=== PATIENT | female | born 1965 | race Caucasian/White ===

== ENCOUNTER 2017-09-01 14:05 | Emergency (ER) | payer OTHER, SELFPAY ==
[2017-09-01 14:35] LABS: #Basophils 0.1 thou/uL (0.0-0.2); #Eosinphils 0.2 thou/uL (0.0-0.7); #Lymphocytes 1.7 thou/uL (1.20-3.40); #Monocytes 0.5 thou/uL (0.11-0.59); #Neutrophils 5.1 thou/uL (1.40-6.50); %Eosinophils 2.2 % (0.0-10.0); %Lymphocytes 22.4 % (21.0-51.0); %Monocytes 6.7 % (0.0-10.0); %Neutrophils 67.7 % (42.0-75.0); Mean Corpuscular HGB CONC 34.3 g/dL (32.0-36.0); Mean Corpuscular Hemoglobin 36.3 pg (27.0-31.0); Mean Platelet Volume 6.8 fL (7.4-10.4); Platelet Count 199 thou/uL (130-400); RBC Distribution Width 11.8 % (11.5-14.5); Red Blood Cell (RBC) Count 4.41 mill/uL (4.20-5.40); White Blood Cell (WBC) Count 7.5 thou/uL (4.8-10.8)
[2017-09-01] MEDS ORDERED: Iopamidol 370 76% 50 ML VIAL FS ONE (14:49)
[2017-09-01] MEDS ORDERED: ISOVUE-370 76%-LOCM 1 ML ONE (14:49)
[2017-09-01 14:51] LABS: MDiff Complete? YES; Macrocytosis SLIGHT = 6-15 cells (100X) (0-5/hpf); PLT Morphology Comment Appears Adequate; Polychromasia SLIGHT = 2-3 cells (100X) (0-2/hpf)
[2017-09-01 14:55] LABS: ALT (SGPT) 56 U/L (8-55); AST (SGOT) 136 U/L (5-34); Albumin 4.2 g/dL (3.5-5.0); Alkaline Phosphatase 120 U/L (40-150); Anion Gap 16 mmol/L (10-20); BUN (Urea Nitrogen) 10 mg/dL (9.8-20.1); Bilirubin, Total 2.7 mg/dL (0.2-1.2); Calc. Creatinine Clearance 0 mL/min (70-130); Calcium 10.5 mg/dL (7.8-10.44); Carbon Dioxide 25 mmol/L (22-29); Chloride 98 mmol/L (98-107); Estimated GFR-MDRD Greater than 90; Globulin 3.8 g/dL (2.4-3.5); Glucose 122 mg/dL (70-105); Lipase 22 U/L (8-78); Potassium 3.5 mmol/L (3.5-5.1); Sodium 135 mmol/L (136-145)
[2017-09-01 15:10] LABS: Bilirubin Small (Negative); Blood, Urine Negative (Negative); Clarity CLOUDY (Clear); Glucose, Urine (Dipstick) Negative (Negative); Protein, Urine (Dipstick) Negative (Neg-Trace); Specific Gravity, Urine 1.018 (1.002-1.036)
[2017-09-01 15:11] LABS: Bacteria/HPF 1+ HPF (None Seen); Squamous Epithelial 21-50 HPF (0-3)
[2017-09-01 15:12] LABS: Pathc Cast-AUWi Flag 5.96 (0-2.49)
[2017-09-01 15:13] LABS: Nitrite Negative (Negative)
[2017-09-01 15:14] LABS: Leukocyte Negative (Negative)
[2017-09-01 15:21] LABS: Hyaline Casts/LPF 0-3 HYALINE CAST LPF (0-3 Hyaline); Other Casts/LPF None Seen LPF (0-3 Hyaline)
[2017-09-01] MEDS ORDERED: Ketorolac Tromethamine 30 MG/ML VIAL ONE ×2 (15:27→17:25)
--- NOTE | 2017-09-01 16:23 | ULT ---
RIGHT UPPER QUADRANT ABDOMINAL ULTRASOUND: HISTORY: Right upper quadrant abdominal pain for one week. TECHNIQUE: Multiplanar lane-scale and color Doppler images were obtained in a right upper quadrant abdominal ult rasound. FINDINGS: The liver demonstrates increased echogenicity without focal lesions or intrahepatic ductal dilatation . The gallbladder is normal without stones, sludge, gallbladder wall thickening, or pericholecystic fluid. The common bile duct is normal, measuring 6 mm. The visualized portions of the pancreas are unremarkable. The right kidney is normal in echogenicity without hydronephrosis or calculus and measures 9.7 cm in length. IMPRESSION: Fatty liver. POS: MAN[facility]U
[2017-09-01] MEDS ORDERED: Promethazine HCl 25 MG/ML VIAL ONE ×2 (17:25→18:03)
--- NOTE | 2017-09-01 20:03 | CT ---
ABDOMEN CT WITH CONTRAST: PELVIS CT WITH CONTRAST: HISTORY: Right-sided abdominal pain. COMPARISON: 10/09/2015 TECHNIQUE: Abdomen and pelvis CTs are performed with IV and oral contrast. Coronal reformatted images are submi tted for interpretation. FINDINGS: ABDOMEN: The lung bases are clear. Areas of scarring and atelectasis are noted. Heart size is normal. No pericardial effusion. The descending thoracic aorta and abdominal aorta milton ve a normal caliber. No periaortic fat stranding. The gallbladder is unremarkable. Intrahepatic and extrahepatic portal veins are patent. Increased echogenicity of the liver due to hepatic steatosis. No obvious hepatic masses. The spleen, pancreas, and adrenal glands have appropriate enhancement. There are some nonspecific gastrohepatic lymph nodes. No retroperitoneal or periportal lymphadenopat hy. Nonspecific paraaortic and aortocaval lymph nodes. No mesenteric mass, lymphadenopathy, free air, or free fluid. Note is made of a gastric lap band. Gastric mucosa, duodenum, and multiple normal caliber small paul l loops are noted. The ileocecal junction is normal. Normal caliber appendix. Hyperdense material in the lumen in the appendix may represent contrast. There is air at the tip of the appendix. Contr ast and fecal material are noted in the colon. No evidence of obstruction. Minimal diverticulosis, without evidence of diverticulitis. There is nonspecific pericolonic fat stranding at the level of t he mid to distal sigmoid colon. Correlate for possible colitis. PELVIS: There is nonspecific stranding in the pelvis, adjacent to the sigmoid colon. The uterus is surgically absent. The urinary bladder is unremarkable. No pelvic mass, lymphadenopathy, or free ai r. No lytic or blastic lesions in the osseous structures. IMPRESSION: 1. Normal caliber appendix. 2. Nonspecific inflammatory changes in the pelvis, involving the mesentery surrounding the sigmoid c olon. No evidence of diverticulitis, perforation, or abscess. Correlate for possible nonspecific in flammation/colitis. 3. Gastric lap band appears to be appropriately positioned. POS: PPP
== END 2017-09-01 21:43 | disposition home or self-care (01) ==
LOC: ERS 14:05
DX: K52.9 Noninfective gastroenteritis and colitis, unspecified (principal); I10 Essential (primary) hypertension
CPT/HCPCS: 74177; 76705; 80053; 81003; 83690; 85025; 96374; 96375; 96376; J1885; J2550

== ENCOUNTER 2019-06-12 11:44 | Emergency (ER) | payer SELFPAY ==
[2019-06-12] MEDS ORDERED: Ketorolac Tromethamine 60 MG/2 ML VIAL ONE (13:09)
--- NOTE | 2019-06-12 13:21 | RAD ---
EXAM: XR Hip Rt 2-3 View PROVIDED CLINICAL HISTORY: Pain COMPARISON: None FINDINGS: Advanced right hip joint space loss with subchondral cystlike change and periarticular osteophyte for mation. No evidence for fracture or other acute osseous abnormality. Alignment appears anatomic. IMPRESSION: End stage right hip degenerative change.
[2019-06-12] MEDS ORDERED: HYDROcodone/Acetaminophen 10/325 mg Tablet ONE ×2 (13:44→13:46)
== END 2019-06-12 13:52 | disposition home or self-care (01) ==
LOC: ERS 11:44
DX: M25.551 Pain in right hip (principal); M19.90 Unspecified osteoarthritis, unspecified site; I10 Essential (primary) hypertension; F41.9 Anxiety disorder, unspecified; Z79.899 Other long term (current) drug therapy; X50.1XXA Overexertion from prolonged static or awkward postures, initial encounter
CPT/HCPCS: 96372; J1885

== ENCOUNTER 2019-06-24 13:16 | Emergency (ER) | payer OTHER ==
[2019-06-24] MEDS ORDERED: Lorazepam 1 MG TAB ONE (14:18)
[2019-06-24] MEDS ORDERED: Metoprolol Tartrate 50 MG TAB ONE (14:18)
== END 2019-06-24 14:22 | disposition home or self-care (01) ==
LOC: ERS 13:16
DX: I10 Essential (primary) hypertension (principal); F41.9 Anxiety disorder, unspecified; M19.90 Unspecified osteoarthritis, unspecified site; Z79.899 Other long term (current) drug therapy
CPT/HCPCS: 99283

== ENCOUNTER 2019-07-01 13:03 | Outpatient (CLI) | payer OTHER ==
[2019-07-01 14:50] LABS: #Basophils 0.1 thou/uL (0.0-0.2); #Eosinphils 0.2 thou/uL (0.0-0.7); #Lymphocytes 3.6 thou/uL (1.20-3.40); #Monocytes 0.4 thou/uL (0.11-0.59); #Neutrophils 4.5 thou/uL (1.40-6.50); %Basophils 1.4 % (0.0-1.0); %Eosinophils 2.3 % (0.0-10.0); %Lymphocytes 40.5 % (21.0-51.0); %Monocytes 4.4 % (0.0-10.0); %Neutrophils 51.4 % (42.0-75.0); Mean Corpuscular HGB CONC 32.2 g/dL (32.0-36.0); Mean Corpuscular Hemoglobin 29.9 pg (27.0-31.0); Mean Corpuscular Volume 92.6 fL (78.0-98.0); Mean Platelet Volume 8.4 fL (7.4-10.4); Platelet Count 247 thou/uL (130-400); RBC Distribution Width 12.1 % (11.5-14.5); Red Blood Cell (RBC) Count 4.69 mill/uL (4.20-5.40); White Blood Cell (WBC) Count 8.8 thou/uL (4.8-10.8)
[2019-07-01 14:56] LABS: Prothrombin Time 13.1 SEC (12.0-14.7)
[2019-07-01 15:20] LABS: Anion Gap 11 mmol/L (10-20); BUN (Urea Nitrogen) 10 mg/dL (9.8-20.1); Calc. Creatinine Clearance 0 mL/min (70-130); Calcium 9.5 mg/dL (7.8-10.44); Carbon Dioxide 30 mmol/L (22-29); Chloride 101 mmol/L (98-107); Estimated GFR-MDRD Greater than 90; Glucose 77 mg/dL (70-105); Potassium 4.3 mmol/L (3.5-5.1); Sodium 138 mmol/L (136-145)
== END 2019-07-01 13:04 | disposition home or self-care (01) ==
LOC: LABBT 13:03
PROVIDERS: ATTEND Orthopaedic Surgery
DX: Z01.818 Encounter for other preprocedural examination (principal); M16.11 Unilateral primary osteoarthritis, right hip
CPT/HCPCS: 80048; 85025; 85610; 87081; 93005; 93010

== ENCOUNTER 2019-07-13 05:35 | Inpatient (IN) | payer OTHER ==
[2019-07-01 13:11] VITALS: BMI 39.6
[2019-07-13] MEDS ORDERED: Sodium Chloride 0.9% 100 ML ONE (05:58)
[2019-07-13] MEDS ORDERED: Vancomycin 1.5 GRAM/300 ML BAG 1.5 GM/300 ML BAG ONE (05:58)
[2019-07-13] MEDS ORDERED: Tranexamic Acid 1,000 MG/10 ML VIAL ONE (05:58)
[2019-07-13] MEDS ORDERED: Fentanyl 100 MCG/2 ML VIAL ONE ×3 (06:06→08:58)
[2019-07-13] MEDS ORDERED: Midazolam HCl 2 mg/2 ml Vial ONE (06:06)
[2019-07-13] MEDS ORDERED: Naloxone HCl 0.4 mg/ml Vial IV PRN (07:30)
[2019-07-13] MEDS ORDERED: HYDROcodone/Acetaminophen 5/325 mg Tablet PO PRN (07:30)
[2019-07-13] MEDS ORDERED: traMADol HCl 50 MG TAB PO PRN ×3 (07:30→09:16)
[2019-07-13] MEDS ORDERED: Naloxone HCl 0.4 mg/ml Vial IVP PRN (07:30)
[2019-07-13] MEDS ORDERED: diphenhydrAMINE 50 MG/ML VIAL IM PRN (07:30)
[2019-07-13] MEDS ORDERED: Promethazine HCl 25 MG/ML VIAL IM PRN ×2 (07:30→09:16)
[2019-07-13] MEDS ORDERED: Hydrocerin (Eucerin) Cream 120 gm Jar TOP PRN (07:30)
[2019-07-13] MEDS ORDERED: Bupivacaine 0.25% 10 ML VIAL EPIDURAL PRN (07:30)
[2019-07-13] MEDS ORDERED: diphenhydrAMINE 25 MG CAP PO PRN ×2 (07:30→09:16)
[2019-07-13] MEDS ORDERED: Ondansetron PF 4 MG/2 ML Vial IVP PRN ×2 (07:30→09:16)
[2019-07-13] MEDS ORDERED: diphenhydrAMINE 50 MG/ML VIAL IVP PRN (07:30)
[2019-07-13] MEDS ORDERED: Promethazine HCl 25 MG SUPP PR PRN (07:30)
[2019-07-13] MEDS ORDERED: Ondansetron HCl/PF 4 MG/2 ML Vial IVP PRN (09:00)
[2019-07-13] MEDS ORDERED: HYDROcodone/Acetaminophen 10/325 mg Tablet PO PRN ×2 (09:16)
[2019-07-13] MEDS ORDERED: Vancomycin HCl 1.5 GM in Sodium Chloride 0.9% 250 ML 300 ML IVPB SCH (09:16)
[2019-07-13] MEDS ORDERED: Zolpidem Tartrate 5 MG TAB PO PRN (09:16)
[2019-07-13] MEDS ORDERED: Acetaminophen 325 MG TAB PO PRN (09:16)
[2019-07-13] MEDS ORDERED: Fentanyl 100 MCG/2 ML VIAL SLOW IVP PRN ×2 (09:16)
[2019-07-13] MEDS ORDERED: Ondansetron PF 4 MG/2 ML Vial ONE (10:01)
[2019-07-13] MEDS ORDERED: Lidocaine 1% PF 5 ML VIAL ONE (10:01)
[2019-07-13] MEDS ORDERED: Glycopyrrolate 0.2 MG/ML 5 ML SYRINGE ONE (10:01)
[2019-07-13] MEDS ORDERED: Lidocaine 1.5% w/Epi 1:200K 30 ML VIAL (Epid Use) ONE (10:01)
[2019-07-13] MEDS ORDERED: Rocuronium Bromide 10 MG/ML (10ML VIAL) ONE (10:01)
[2019-07-13] MEDS ORDERED: Dexamethasone 20 MG/5 ML VIAL ONE (10:01)
[2019-07-13] MEDS ORDERED: PROPOFOL 200 MG/20 ML VIAL ONE (10:01)
[2019-07-13] MEDS ORDERED: Ketorolac Tromethamine 30 MG/ML VIAL ONE (10:01)
[2019-07-13] MEDS ORDERED: Ketorolac Tromethamine 30 MG/ML VIAL IVP SCH ×2 (12:00→14:00)
[2019-07-13] MEDS: Dextrose 5 %-0.45 % NaCl 1,000 ML IV SCH ×2 (12:01→16:53)
[2019-07-13] MEDS: HYDROcodone/Acetaminophen 5/325 mg Tablet PO PRN ×3 (12:17→21:06)
--- NOTE | 2019-07-13 13:35 | RAD ---
EXAM: RIGHT HIP ONE VIEW: 07/13/19 HISTORY: Status post total hip arthroplasty. Cross-table lateral view demonstrates no dislocation or periprosthetic fracture. This is compared to an AP pelvis done the same day. IMPRESSION: No dislocation or periprosthetic fracture. POS: [facility]
[2019-07-13] MEDS: Ketorolac Tromethamine 30 MG/ML VIAL IVP SCH ×2 (13:36→20:17)
--- NOTE | 2019-07-13 13:37 | RAD ---
AP PELVIS: 07/13/19 HISTORY: Patient status post total hip replacement. COMPARISON: 06/12/19 study. A right hip prosthesis is now present in good position without evidence of loosening or fracture. Ost eonecrosis changes probably secondary to advanced osteoarthritis of the left hip is noted. IMPRESSION: 1. Right hip prosthesis in good position. 2. Osteonecrosis changes with severe arthritic changes of the left hip. POS: [facility]
--- NOTE | 2019-07-13 15:23 | OP ---
DATE OF PROCEDURE: 07/13/2019 PREOPERATIVE DIAGNOSIS: Right hip osteoarthritis POSTOPERATIVE DIAGNOSIS: Right hip osteoarthritis PROCEDURE PERFORMED: Right total hip arthroplasty. MORTGAGE LOAN SPECIALIST: Adam Dempsey PA-C. ANESTHESIOLOGIST: Floyd Rider MD ANESTHESIA: The patient received a general endotracheal intubation with epidural block. ESTIMATED BLOOD LOSS: 250 mL. TOURNIQUET TIME: None. IMPLANTS: [place] Trident PSL cluster shell 50 mm, an Accolade II 130 degree size 5, a Trident X3 poly 10 degree liner 36 mm, and a Biolox Delta +2.5 36 mm ceramic head. ANTIBIOTICS: Ancef 2 g, vancomycin 1.5 g, and TXA 1 g. COMPLICATIONS: None. INDICATIONS FOR PROCEDURE: Ms. Paredes is a 53-year-old female with severe pain with ambulation. I discussed with the patient risks and benefits of right total hip arthroplasty to include pain, scar, bleeding, infection, damage to vital structures, decreased range of motion and strength, continued pain despite surgery intervention, loss of life or limb. The patient understood rotational deficits, shortening of the limb are possible and she elected to proceed. DESCRIPTION OF PROCEDURE: Time-out was performed designating the right lower extremity as the operative site based on site, consents, and marking. After time-out, the patient's right lower extremity was prepped and draped in sterile fashion. She was placed in a lateral position with bony prominence well padded with an extra roll. I made an incision down through skin to the IT band. We controlled bleeders as she had some oozing from vessels and we dressed them. We moved to the gluteus medius. We took down the gluteus medius and minimus with tenotomy, exposed the capsule, excised, and T'd the capsule. We were able to expose the hip, dislocate the hip, cut the femoral head, remove it. We moved back to the acetabulum. We placed retractors, removed the labrum, exposed the hip, removed the ligament remaining in the fovea within acetabulum. We reamed starting with a 44 and up to a 50, placed 50 mm PSL cup and knocked cement osteophytes that might impinge inferiorly off. Then wee moved back to the neck. We broached starting with a 0 up to a size 5, felt had good firm fixation. We reduced with a 5 standard. We felt like we needed just a little more length. Overall, we are pleased and removed the stem. We placed #5 in position, placed a +2.5 ceramic head, reduced into position, had good overall shake, rotation. Alignment did not dislocate. We then washed the joint. We closed the gluteus minimus with #5 Ethibond through offset drill holes passing through and sewed it into position. We took the gluteus medius with #2 Vicryl, closed IT band with #2 Stratafix, 0 Stratafix and 2-0 Stratafix, and glue. The patient will be admitted per [facility] protocol to be followed in-house. Discharge will be based on her functional status. Job ID: [id number] [facility]
[2019-07-13] MEDS: CEFAZOLIN 2 GM in Premix Bag 1 BAG IVPB SCH ×2 (15:59→23:59)
--- NOTE | 2019-07-13 16:22 | PDOC.HOSPP ---
- Subjective Encounter Date: 07/13/19 Encounter Time: 15:25 Subjective: Patient seen and examined. No new complaints. s/p Right Total Hip Replacement. Denies chest pain, SOB, Nausea and vomiting. Consulted for medical managment. - Objective Vital Signs & Weight: Vital Signs (12 hours) Temp Pulse Resp BP Pulse Ox 07/13/19 16:00 98.8 F 96 16 114/75 95 07/13/19 11:00 97.7 F 89 16 104/83 96 Weight Weight 217 lb I&O: 07/12/19 07/13/19 07/14/19 06:59 06:59 06:59 Intake Total 200 Balance 200 Additional Labs: Pre-op labs dated 07/01 reviewed and unremarkable. EKG Reviewed by me: Yes (Pre op 07/01: NSR, 86 bpm) Hospitalist ROS - Review of Systems Constitutional: denies: fever, chills, sweats, weakness, malaise, other Respiratory: reports: cough, shortness of breath, hemoptysis Cardiovascular: reports: chest pain, palpitations, edema Gastrointestinal: reports: nausea, vomiting, abdominal pain, diarrhea - Medication Medications: Active Medications Generic Name Dose Route Start Last Admin Trade Name Freq PRN Reason Stop Dose Admin Hydrocodone Bitart/Acetaminophen 2 tab 07/13/19 07:30 07/13/19 12:17 [place] 5/325 PO 2 tab Q4H PRN Administration For Moderate Pain 4-6 Diphenhydramine HCl 25 mg 07/13/19 07:30 07/13/19 14:41 Benadryl IVP 25 mg Q3H PRN Administration Itching Cefazolin Sodium/Dextrose 2 gm 50 mls @ 100 mls/hr 07/13/19 16:00 07/13/19 15 :59 / Device IVPB 07/14/19 00:29 50 mls 0000,1600 YVETTE Administration Dextrose/Sodium Chloride 1,000 mls @ 100 mls/hr 07/13/19 09:16 07/13/19 12:01 D5 1/2 Ns IV Not Given .Q10H YVETTE Ketorolac Tromethamine 30 mg 07/13/19 14:00 07/13/19 13:36 Toradol IVP 07/15/19 08:01 30 mg 0200,0800,1400,2000 YVETTE Administration Ondansetron HCl 4 mg 07/13/19 07:30 07/13/19 12:18 Zofran IVP 4 mg Q6H PRN Administration Nausea/Vomiting - Exam General Appearance: NAD, awake alert Heart: RRR, no murmur, no gallops, no rubs, normal peripheral pulses Respiratory: CTAB, no wheezes, no rales, no ronchi Gastrointestinal: soft, non-tender, non-distended, no guarding, no rigidity, diminished bowl sounds Psychiatric: normal affect, A&O x 3 Hosp A/P - Plan Impression: s/p right THR with Brazeal Sciatica OA Obesity BMI 39 Plan: Epidural per anesthesia PT/OT per [facility] protocol ASA DVT prophylaxis per [facility] protocol Restart home meds: gabapentin and cymbalta
[2019-07-13] MEDS ORDERED: Vancomycin 1.5 GRAM/300 ML BAG 1.5 GM in Premix Bag 1 BAG IVPB SCH (18:00)
[2019-07-13] MEDS: Gabapentin 300 MG CAP PO SCH (20:17)
[2019-07-13] MEDS: Aspirin 81 mg Enteric Coated Tablet PO SCH (20:17)
[2019-07-13] MEDS: Zolpidem Tartrate 5 MG TAB PO PRN (20:17)
[2019-07-13] MEDS: fentaNYL Citrate/PF 500 MCG, Bupivacaine 10 ML in Sodium Chloride 0.9% 80 ML EPIDURAL SCH (23:58)
[2019-07-14] MEDS: Ketorolac Tromethamine 30 MG/ML VIAL IVP SCH ×4 (02:02→19:54)
[2019-07-14] MEDS: Dextrose 5 %-0.45 % NaCl 1,000 ML IV SCH ×2 (04:21→14:16)
[2019-07-14] MEDS: HYDROcodone/Acetaminophen 5/325 mg Tablet PO PRN ×5 (04:58→22:08)
[2019-07-14 05:34] LABS: Hemoglobin 10.2 g/dL (12.0-16.0); Mean Corpuscular HGB CONC 32.2 g/dL (32.0-36.0); Mean Corpuscular Hemoglobin 30.1 pg (27.0-31.0); Mean Corpuscular Volume 93.2 fL (78.0-98.0); Mean Platelet Volume 8.1 fL (7.4-10.4); Platelet Count 233 thou/uL (130-400); Red Blood Cell (RBC) Count 3.39 mill/uL (4.20-5.40)
[2019-07-14] MEDS: Senokot S 8.6-50 MG TAB PO SCH ×2 (08:45→19:57)
[2019-07-14] MEDS: Gabapentin 300 MG CAP PO SCH ×2 (08:45→19:58)
[2019-07-14] MEDS: Multivitamin W/ Minerals 1 TAB PO SCH (08:45)
[2019-07-14] MEDS: Aspirin 81 mg Enteric Coated Tablet PO SCH ×2 (08:45→19:57)
[2019-07-14] MEDS: Multivitamins CHEW w/Iron Tablet PO SCH (08:45)
[2019-07-14] MEDS: DULoxetine 30 MG CAP PO SCH (08:46)
[2019-07-14] MEDS: Ferrous Gluconate 324 MG TAB PO SCH ×2 (08:46→19:57)
[2019-07-14] MEDS: fentaNYL Citrate/PF 500 MCG, Bupivacaine 10 ML in Sodium Chloride 0.9% 80 ML EPIDURAL SCH (13:06)
[2019-07-14] MEDS: Zolpidem Tartrate 5 MG TAB PO PRN (22:08)
--- NOTE | 2019-07-14 23:29 | PDOC.HOSPP ---
- Subjective Encounter Date: 07/14/19 Encounter Time: 08:30 Subjective: Patient seen and examined for med mngt. Pain controlled. No CP/SOB or palpitations. No new complaints. No overnight events - Objective Vital Signs & Weight: Vital Signs (12 hours) Temp Pulse Resp BP Pulse Ox 07/14/19 23:07 98.5 F 95 18 105/66 94 L 07/14/19 20:07 93 L 07/14/19 19:56 99.2 F 99 18 109/72 93 L 07/14/19 16:30 98.9 F 99 16 120/79 99 07/14/19 12:40 98.3 F 90 18 97/65 94 L Weight Admit Weight 217 lb Weight 217 lb I&O: 07/13/19 07/14/19 07/15/19 06:59 06:59 06:59 Intake Total 1200 2400 Output Total 500 2050 Balance 700 350 Result Diagrams: 07/15/19 05:33 EKG Reviewed by me: Yes (SR) Hospitalist ROS - Review of Systems Cardiovascular: denies: chest pain, palpitations, orthopnea, paroxysmal noc. dyspnea, edema, light headedness, other Gastrointestinal: denies: nausea, vomiting, abdominal pain, diarrhea, constipation, melena, hematochezia, other - Medication Medications: Active Medications Generic Name Dose Route Start Last Admin Trade Name Freq PRN Reason Stop Dose Admin Hydrocodone Bitart/Acetaminophen 2 tab 07/13/19 07:30 07/14/19 22:08 [place] 5/325 PO 2 tab Q4H PRN Administration For Moderate Pain 4-6 Aspirin 81 mg 07/13/19 21:00 07/14/19 19:57 Ecotrin PO 81 mg BID YVETTE Administration Diphenhydramine HCl 25 mg 07/13/19 07:30 07/13/19 14:41 Benadryl IVP 25 mg Q3H PRN Administration Itching Duloxetine HCl 60 mg 07/14/19 09:00 07/14/19 08:46 Cymbalta PO 60 mg DAILY YVETTE Administration Ferrous Gluconate 324 mg 07/14/19 09:00 07/14/19 19:57 Fergon PO 324 mg BID YVETTE Administration Gabapentin 1,200 mg 07/13/19 21:00 07/14/19 19:58 Neurontin PO 1,200 mg BID YVETTE Administration Fentanyl Citrate 500 mcg/ 100 mls @ 7 mls/hr 07/13/19 07:30 07/14/19 13:06 Bupivacaine HCl 10 ml/ Sodium EPIDURAL 100 mls Chloride INF YVETTE Administration Dextrose/Sodium Chloride 1,000 mls @ 100 mls/hr 07/13/19 09:16 07/14/19 14:16 D5 1/2 Ns IV Not Given .Q10H YVETTE Iron/Minerals/Multivitamins 1 tab 07/14/19 09:00 07/14/19 08:45 Theragran M PO 1 tab DAILY YVETTE Administration Ketorolac Tromethamine 30 mg 07/13/19 14:00 07/14/19 19:54 Toradol IVP 07/15/19 08:01 30 mg 0200,0800,1400,2000 YVETTE Administration Multivitamins/Iron 1 tab 07/14/19 09:00 07/14/19 08:45 Centrum Kids Complete/Iron PO 1 tab DAILY YVETTE Administration Ondansetron HCl 4 mg 07/13/19 07:30 07/13/19 12:18 Zofran IVP 4 mg Q6H PRN Administration Nausea/Vomiting Senna/Docusate Sodium 2 tab 07/14/19 09:00 07/14/19 19:57 Senokot S PO 2 tab BID YVETTE Administration Sodium Chloride 10 ml 07/13/19 09:16 07/14/19 08:46 Flush - Normal Saline IVF 10 ml PRN PRN Administration Saline Flush Tramadol HCl 100 mg 07/13/19 07:30 07/13/19 18:33 Ultram PO 100 mg Q6H PRN Administration Moderate Pain 4-6 Zolpidem Tartrate 5 mg 07/13/19 07:30 07/14/19 22:08 Ambien PO 5 mg HSPRN PRN Administration Insomnia - Exam General Appearance: NAD Heart: RRR, no gallops Respiratory: CTAB, no rales Gastrointestinal: non-tender, non-distended, normal bowel sounds Extremities: no cyanosis Hosp A/P - Plan DVT proph w/SCDs Chronic low back pain Peripheral neuropathy DJD Obesity BMI 39 Plan: Cont Gabapentin Cont Cymbalta Cont other meds PT/OT
[2019-07-15] MEDS: Dextrose 5 %-0.45 % NaCl 1,000 ML IV SCH ×2 (00:23→12:14)
[2019-07-15] MEDS: Ketorolac Tromethamine 30 MG/ML VIAL IVP SCH ×2 (02:19→08:48)
[2019-07-15] MEDS: fentaNYL Citrate/PF 500 MCG, Bupivacaine 10 ML in Sodium Chloride 0.9% 80 ML EPIDURAL SCH (05:27)
[2019-07-15] MEDS: HYDROcodone/Acetaminophen 5/325 mg Tablet PO PRN (05:28)
[2019-07-15 06:11] LABS: Hemoglobin 10.5 g/dL (12.0-16.0); Mean Corpuscular HGB CONC 33.3 g/dL (32.0-36.0); Mean Corpuscular Hemoglobin 31.4 pg (27.0-31.0); Mean Corpuscular Volume 94.1 fL (78.0-98.0); Mean Platelet Volume 8.4 fL (7.4-10.4); Platelet Count 210 thou/uL (130-400); RBC Distribution Width 11.9 % (11.5-14.5); Red Blood Cell (RBC) Count 3.33 mill/uL (4.20-5.40); White Blood Cell (WBC) Count 10.9 thou/uL (4.8-10.8)
[2019-07-15] MEDS: Aspirin 81 mg Enteric Coated Tablet PO SCH (08:47)
[2019-07-15] MEDS: DULoxetine 30 MG CAP PO SCH (08:47)
[2019-07-15] MEDS: Gabapentin 300 MG CAP PO SCH (08:47)
[2019-07-15] MEDS: Multivitamin W/ Minerals 1 TAB PO SCH (08:47)
[2019-07-15] MEDS: Ferrous Gluconate 324 MG TAB PO SCH (08:47)
[2019-07-15] MEDS: Senokot S 8.6-50 MG TAB PO SCH (08:48)
[2019-07-15] MEDS: Multivitamins CHEW w/Iron Tablet PO SCH (08:48)
[2019-07-15] MEDS ORDERED: HYDROcodone/Acetaminophen 10/325 mg Tablet PO PRN (10:23)
[2019-07-15] MEDS: HYDROcodone/Acetaminophen 10/325 mg Tablet PO PRN ×2 (12:44→16:51)
[2019-07-15 16:09] VITALS: BP 116/79; TEMP 98.7
== END 2019-07-15 17:10 | disposition home or self-care (01) | DRG 470 ==
LOC: SJJU 05:35 → EDSTATUS 10:05 → SJJU 11:06
PROVIDERS: ADMIT Orthopaedic Surgery; ATTEND Orthopaedic Surgery
PROC: 0SR904Z Replacement of Right Hip Joint with Ceramic on Polyethylene Synthetic Substitute, Open Approach (ICD-10-PCS; principal; 2019-07-13)
DX: M16.11 Unilateral primary osteoarthritis, right hip (principal); M25.751 Osteophyte, right hip; I10 Essential (primary) hypertension; G47.30 Sleep apnea, unspecified; F41.9 Anxiety disorder, unspecified; M54.2 Cervicalgia; G89.29 Other chronic pain; E66.9 Obesity, unspecified; G62.9 Polyneuropathy, unspecified; Z90.710 Acquired absence of both cervix and uterus; Z88.2 Allergy status to sulfonamides; Z68.39 Body mass index [BMI] 39.0-39.9, adult; M54.41 Lumbago with sciatica, right side; M54.42 Lumbago with sciatica, left side
CPT/HCPCS: 36415; 72170; 85027; J0690; J1100; J1200; J1885; J2001; J2250; J2405; J2704; J3010; J3490

== ENCOUNTER 2019-10-03 14:34 | Emergency (ER) | payer OTHER ==
--- NOTE | 2019-10-03 15:05 | RAD ---
EXAM: XR Hip Rt 2-3 View PROVIDED CLINICAL HISTORY: Pain COMPARISON: 07/13/2019 FINDINGS: There is no evidence for fracture or other acute osseous abnormality. Alignment appears anatomic. Pos toperative changes of right hip arthroplasty are redemonstrated, without evidence for hardware loosening or migration. IMPRESSION: No evidence for an acute osseous abnormality. If there is persistent clinical concern, conservative m anagement and follow-up imaging advised.
--- NOTE | 2019-10-03 15:05 | RAD ---
EXAM: XR Pelvis AP STANDARD PROVIDED CLINICAL HISTORY: Right hip pain COMPARISON: 07/13/2019 FINDINGS: Right total hip arthroplasty changes are demonstrated, without evidence for hardware complication. No evidence for fracture or other acute osseous abnormality. Advanced left hip degenerative changes are redemonstrated. IMPRESSION: No evidence for an acute osseous abnormality. If there is persistent clinical concern, conservative m anagement and follow-up imaging advised.
[2019-10-03] MEDS ORDERED: Ondansetron ODT 4 MG TAB ONE (15:42)
[2019-10-03] MEDS ORDERED: Morphine 4 MG/ML VIAL ONE (15:42)
== END 2019-10-03 16:35 | disposition home or self-care (01) ==
LOC: ERS 14:34
DX: S76.011A Strain of muscle, fascia and tendon of right hip, initial encounter (principal); I10 Essential (primary) hypertension; M19.90 Unspecified osteoarthritis, unspecified site; F41.9 Anxiety disorder, unspecified; Z79.899 Other long term (current) drug therapy; W19.XXXA Unspecified fall, initial encounter
CPT/HCPCS: 72170; 96372; J2270; Q0162

== ENCOUNTER 2019-10-26 16:52 | Emergency (ER) | payer OTHER ==
--- NOTE | 2019-10-26 18:16 | ULT ---
ULTRASOUND RIGHT LOWER EXTREMITY VENOUS DOPPLER: 10/26/19 HISTORY: Pain and swelling. COMPARISON: None. FINDINGS: Real time lane scale, color Doppler and spectral analysis right lower extremity venous system was per formed. The common femoral, femoral, proximal portion of the greater saphenous and deep femoral veins, as wel l as the popliteal and posterior tibial veins were interrogated. Normal flow, augmentation and compression. IMPRESSION: No deep venous thrombosis. POS: HOME
== END 2019-10-26 18:25 | disposition home or self-care (01) ==
LOC: ERS 16:52
DX: M79.651 Pain in right thigh (principal); I10 Essential (primary) hypertension; F41.9 Anxiety disorder, unspecified; Z79.899 Other long term (current) drug therapy

== ENCOUNTER 2019-10-29 07:24 | Outpatient (CLI) | payer OTHER ==
[2019-10-29 11:29] LABS: #Basophils 0.1 thou/uL (0.0-0.2); #Eosinphils 0.1 thou/uL (0.0-0.7); #Lymphocytes 3.4 thou/uL (1.20-3.40); #Monocytes 0.4 thou/uL (0.11-0.59); %Basophils 1.1 % (0.0-1.0); %Eosinophils 1.5 % (0.0-10.0); %Lymphocytes 41.9 % (21.0-51.0); %Monocytes 5.4 % (0.0-10.0); Hemoglobin 14.6 g/dL (12.0-16.0); Mean Corpuscular HGB CONC 32.2 g/dL (32.0-36.0); Mean Corpuscular Hemoglobin 29.3 pg (27.0-31.0); Mean Corpuscular Volume 90.9 fL (78.0-98.0); Mean Platelet Volume 7.8 fL (7.4-10.4); Platelet Count 306 thou/uL (130-400); RBC Distribution Width 13.1 % (11.5-14.5); Red Blood Cell (RBC) Count 4.99 mill/uL (4.20-5.40)
[2019-10-29 11:36] LABS: INR-International Normal Ratio 0.9; Prothrombin Time 12.6 sec (12.0-14.7)
[2019-10-29 11:59] LABS: Anion Gap 12 mmol/L (10-20); BUN (Urea Nitrogen) 11 mg/dL (9.8-20.1); Calc. Creatinine Clearance 0 mL/min (70-130); Calcium 9.7 mg/dL (7.8-10.44); Carbon Dioxide 29 mmol/L (22-29); Chloride 100 mmol/L (98-107); Estimated GFR-MDRD Greater than 90; Glucose 92 mg/dL (70-105); Potassium 4.1 mmol/L (3.5-5.1); Sodium 137 mmol/L (136-145)
[2019-10-29 18:08] LABS: SARS-CoV-2 MS2 Positive; SARS-CoV-2 N Gene Negative; SARS-CoV-2 S Gene Negative; SARS-CoV-2 orf1ab Negative
== END 2019-10-29 07:25 | disposition home or self-care (01) ==
LOC: LABBT 07:24
PROVIDERS: ATTEND Orthopaedic Surgery
DX: Z01.812 Encounter for preprocedural laboratory examination (principal); Z11.59 Encounter for screening for other viral diseases; M16.12 Unilateral primary osteoarthritis, left hip
CPT/HCPCS: 80048; 85025; 85610; 87081; 87635; U0003

== ENCOUNTER 2019-10-29 09:15 | Inpatient (IN) | payer OTHER ==
[2019-11-02] MEDS ORDERED: Sodium Chloride 0.9% 100 ML ONE (05:56)
[2019-11-02] MEDS ORDERED: Tranexamic Acid 1,000 MG/10 ML VIAL ONE (05:56)
[2019-11-02] MEDS ORDERED: Vancomycin 1.5 GRAM/300 ML BAG ONE (05:56)
[2019-11-02] MEDS ORDERED: Midazolam HCl 2 mg/2 ml Vial ONE (06:15)
[2019-11-02] MEDS ORDERED: Fentanyl 100 MCG/2 ML VIAL ONE (06:15)
[2019-11-02] MEDS ORDERED: Bupivacaine PF 0.5% 30 ML VIAL ONE (07:04)
[2019-11-02] MEDS ORDERED: Acetaminophen 325 MG TAB PO PRN ×2 (07:11→12:31)
[2019-11-02] MEDS ORDERED: Zolpidem Tartrate 5 MG TAB PO PRN (07:15)
[2019-11-02] MEDS ORDERED: diphenhydrAMINE 50 MG/ML VIAL IM PRN (07:15)
[2019-11-02] MEDS ORDERED: Bupivacaine 0.25% 10 ML VIAL EPIDURAL PRN (07:15)
[2019-11-02] MEDS ORDERED: Promethazine HCl 25 MG SUPP PR PRN (07:15)
[2019-11-02] MEDS ORDERED: Hydrocerin (Eucerin) Cream 120 gm Jar TOP PRN (07:15)
[2019-11-02] MEDS ORDERED: Promethazine HCl 25 MG/ML VIAL IM PRN ×2 (07:15→12:31)
[2019-11-02] MEDS ORDERED: traMADol HCl 50 MG TAB PO PRN ×3 (07:15→12:31)
[2019-11-02] MEDS ORDERED: HYDROcodone/Acetaminophen 5/325 mg Tablet PO PRN (07:15)
[2019-11-02] MEDS ORDERED: diphenhydrAMINE 50 MG/ML VIAL IVP PRN (07:15)
[2019-11-02] MEDS ORDERED: Naloxone HCl 0.4 mg/ml Vial IVP PRN (07:15)
[2019-11-02] MEDS ORDERED: Ondansetron PF 4 MG/2 ML Vial IVP PRN ×2 (07:15→12:31)
[2019-11-02] MEDS ORDERED: Naloxone HCl 0.4 mg/ml Vial IV PRN (07:15)
[2019-11-02] MEDS ORDERED: Albumin 5% 250 ML ONE ×2 (09:32→09:47)
[2019-11-02] MEDS ORDERED: Lidocaine 1.5% w/Epi 1:200K 30 ML VIAL (Epid Use) ONE (09:40)
[2019-11-02] MEDS ORDERED: Lidocaine 1% PF 5 ML VIAL ONE (09:40)
[2019-11-02] MEDS ORDERED: Rocuronium Bromide 10 MG/ML (10ML VIAL) ONE (09:40)
[2019-11-02] MEDS ORDERED: Glycopyrrolate 0.2 MG/ML 5 ML SYRINGE ONE (09:40)
[2019-11-02] MEDS ORDERED: PHENYLEPHRINE-NS 100 MCG/ML 10 ML SYRINGE ONE (09:40)
[2019-11-02] MEDS ORDERED: PROPOFOL 200 MG/20 ML VIAL ONE (09:40)
[2019-11-02] MEDS ORDERED: Ketorolac Tromethamine 30 MG/ML VIAL ONE (09:54)
[2019-11-02] MEDS: Sodium Chloride 0.9% 1,000 ML IV SCH (11:40)
--- NOTE | 2019-11-02 12:24 | RAD ---
LEFT HIP 1 VIEW: HISTORY: Hip replacement. FINDINGS: Cross-table portable lateral view of the left hip demonstrate total hip prosthesis in place without d islocation or periprosthetic fracture. IMPRESSION: Recent total left hip replacement. POS: [facility]
[2019-11-02] MEDS ORDERED: HYDROcodone/Acetaminophen 10/325 mg Tablet PO PRN ×2 (12:31)
[2019-11-02] MEDS ORDERED: diphenhydrAMINE 25 MG CAP PO PRN (12:31)
[2019-11-02] MEDS ORDERED: Fentanyl 100 MCG/2 ML VIAL SLOW IVP PRN ×2 (12:31)
[2019-11-02] MEDS ORDERED: Aspirin 81 mg Enteric Coated Tablet PO SCH (13:00)
--- NOTE | 2019-11-02 13:16 | RAD ---
EXAM: AP PELVIS ONE VIEW: 11/02/19 HISTORY: Hip replacement. Single AP view of the pelvis demonstrates recent left total hip replacement. No evidence for dislocat ion or periprosthetic fracture or other acute process. IMPRESSION: Unremarkable recent total hip replacement. POS: [facility]
[2019-11-02] MEDS ORDERED: Polyethylene Glycol 3350 17 GM Packet PO SCH (13:30)
[2019-11-02] MEDS ORDERED: Senokot S 8.6-50 MG TAB PO SCH (13:30)
[2019-11-02] MEDS ORDERED: Ketorolac Tromethamine 30 MG/ML VIAL IM SCH (14:00)
[2019-11-02] MEDS: CEFAZOLIN 2 GM in Premix Bag 1 BAG IVPB SCH ×2 (14:11→22:36)
[2019-11-02] MEDS: diphenhydrAMINE 25 MG CAP PO PRN ×2 (14:11→17:18)
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
[2019-11-02] MEDS: HYDROcodone/Acetaminophen 5/325 mg Tablet PO PRN ×2 (15:40→20:06)
[2019-11-02] MEDS: Ketorolac Tromethamine 30 MG/ML VIAL IM SCH (17:18)
[2019-11-02] MEDS ORDERED: Vancomycin 1.5 GRAM/300 ML BAG 1.5 GM in Premix Bag 1 BAG IVPB SCH (20:00)
[2019-11-02] MEDS: Aspirin 81 mg Enteric Coated Tablet PO SCH (20:02)
[2019-11-02] MEDS: DULoxetine 30 MG CAP PO SCH (20:02)
[2019-11-02] MEDS: fentaNYL Citrate/PF 500 MCG, Bupivacaine 10 ML in Sodium Chloride 0.9% 80 ML EPIDURAL SCH (22:37)
[2019-11-03] MEDS: HYDROcodone/Acetaminophen 5/325 mg Tablet PO PRN ×5 (00:10→21:33)
[2019-11-03] MEDS: Zolpidem Tartrate 5 MG TAB PO PRN ×2 (00:10→21:33)
[2019-11-03] MEDS: Ketorolac Tromethamine 30 MG/ML VIAL IM SCH ×3 (01:16→17:46)
[2019-11-03] MEDS: Sodium Chloride 0.9% 1,000 ML IV SCH ×3 (01:28→18:50)
[2019-11-03 06:18] LABS: Hemoglobin 10.7 g/dL (12.0-16.0); Mean Corpuscular HGB CONC 32.6 g/dL (32.0-36.0); Mean Corpuscular Hemoglobin 29.3 pg (27.0-31.0); Mean Corpuscular Volume 90.1 fL (78.0-98.0); Mean Platelet Volume 8.2 fL (7.4-10.4); Platelet Count 180 thou/uL (130-400); RBC Distribution Width 13.3 % (11.5-14.5); Red Blood Cell (RBC) Count 3.65 mill/uL (4.20-5.40); White Blood Cell (WBC) Count 8.7 thou/uL (4.8-10.8)
--- NOTE | 2019-11-03 07:36 | OP ---
DATE OF PROCEDURE: 11/02/2019 PREOPERATIVE DIAGNOSIS: Left hip osteoarthritis. POSTOPERATIVE DIAGNOSIS: Left hip osteoarthritis. PROCEDURE PERFORMED: Left total hip arthroplasty. GEOSPATIAL SPECIALIST: Dionte Jalloh. ANESTHESIA: Dr. Mcgee. The patient received a general intubation with an epidural. ESTIMATED BLOOD LOSS: 200 mL. TOURNIQUET TIME: None. IMPLANTS: [place] Trident PSL 50 mm shell with a Trident X3 10-degree 36 mm poly insert, Biolox Delta ceramic head 36 mm +2.5, and Accolade II 130-degree stem size 5. ANTIBIOTICS: Ancef 2 g, vancomycin 1.5 g, and TXA 1 g. COMPLICATIONS: None. HISTORY OF PRESENT ILLNESS: Ms. Paredes is a 53-year-old female, presents with left hip pain. She initially underwent a right total hip arthroplasty and she desired to proceed with her left, given the osteoarthritis of left hip. I discussed risks and benefits of surgery, pain, scar, bleeding, infection, damage to vital structures , decreased range of motion and strength, continued pain despite surgical intervention, failure of implants, need for revision, loss of life or limb. The patient and family understood the risks and benefits of procedure, elected to proceed. DESCRIPTION OF PROCEDURE: Time-out was performed designating the patient's left lower extremity as the operative site based on site, consents, and marking. After time-out, the patient was placed in a lateral position, bony prominences well padded, hip positioned with holders, and left lower extremity was prepped and draped in a sterile fashion. I made a lateral incision down into the skin, noticed thick layer of fat above the IT band, came to the IT band and split the IT band, found the gluteus medius, flagged the gluteus medius and minimus fibers to expose the patient's capsule, T'd the capsule, exposed and dislocated the hip, cut the femoral neck and removed the ball, placed her acetabular retractors anterior and posterior just off that lip acetabulum, we had good overall viewing after I had excised the patient's labrum. We started sequentially reaming, we went to 44 and medialized the cup, went up to a 50 and put a 50 PSL cup, packed into position, placed our 36 mm liner, 10 degree with posterior superior, impacted into place, removed the retractors to the hip. We brought the hip in position, used our cookie cutter and opening awl and then broached, broached up to 5, trialed with a standard nech_and finally removed placed final implants andwith a +2.5 head. The patient had good stability and alignment. The patient was washed, closed. We closed the tenotomy passing suture at the bone, gluteus medius and minimus closed also with suture closure, #2 Vicryl. We closed the IT band with #2 Vicryl, #2 Stratafix, 0 Stratafix, and 2-0 Stratafix, and glue. The patient will be admitted per [facility] protocol, will be followed inhouse. Job ID: [id number] [facility]
[2019-11-03] MEDS: Senokot S 8.6-50 MG TAB PO SCH ×2 (08:22→21:01)
[2019-11-03] MEDS: Aspirin 81 mg Enteric Coated Tablet PO SCH ×2 (08:22→21:01)
[2019-11-03] MEDS: Polyethylene Glycol 3350 17 GM Packet PO SCH (08:23)
[2019-11-03] MEDS ORDERED: Multivit, Chewable SF 1 TAB PO SCH (09:00)
[2019-11-03] MEDS: Ferrous Gluconate 324 MG TAB PO SCH ×2 (10:25→17:46)
[2019-11-03] MEDS: Multivitamin W/ Minerals 1 TAB PO SCH (10:25)
--- NOTE | 2019-11-03 11:59 | PRG ---
DATE OF SERVICE: 11/03/2019 SUBJECTIVE: Annabel is a 53-year-old female, postoperative day 1 from a left total knee arthroplasty. She has had some problems with her epidural today. Pain has been an issue, but other than that this is her 2nd joint replacement and other than being a little uncomfortable, she is in good spirits. OBJECTIVE: VITAL SIGNS: Temperature 98.4, pulse 98, respiratory rate 15, and blood pressure 110/75. GENERAL: She is alert and oriented to person, place, time, and situation, responsive and appropriate with examiner. EXTREMITIES: Her incision is clean. There is no strike through. She is neurovascularly intact in the left lower extremity. No malrotation or shortening is appreciated. LABORATORY DATA: Hemoglobin and hematocrit 10.7 and 30.8. IMPRESSION: A 53-year-old female, postoperative day 1 of left total hip arthroplasty, doing well. PLAN: Continue current care. Consider discharge home tomorrow once if pain control established. Job ID: [id number]
[2019-11-03] MEDS: diphenhydrAMINE 25 MG CAP PO PRN ×2 (12:18→21:01)
[2019-11-03 13:12] VITALS: BMI 39.3
[2019-11-03] MEDS: fentaNYL Citrate/PF 500 MCG, Bupivacaine 10 ML in Sodium Chloride 0.9% 80 ML EPIDURAL SCH (16:05)
[2019-11-03] MEDS: DULoxetine 30 MG CAP PO SCH (21:01)
--- NOTE | 2019-11-03 21:08 | PDOC.HOSPP ---
- Subjective Encounter Date: 11/03/19 Encounter Time: 08:00 Subjective: no overnight events. THis morning, feeling well and has no complaints with exception of pain earlier in the day that is now mild - Objective Vital Signs & Weight: Vital Signs (12 hours) Temp Pulse Resp BP Pulse Ox 11/03/19 16:00 98.3 F 94 14 104/70 98 11/03/19 12:18 98.0 F 94 18 101/67 96 Weight Admit Weight 215 lb Weight 215 lb I&O: 11/02/19 11/03/19 11/04/19 06:59 06:59 06:59 Intake Total 1560 1180 Output Total 300 750 Balance 1260 430 Result Diagrams: 11/03/19 05:33 Hospitalist ROS - Review of Systems Constitutional: denies: fever, chills, sweats, weakness, malaise, other Respiratory: denies: cough, dry, shortness of breath, hemoptysis, SOB with excertion, pleuritic pain, sputum, wheezing, other Cardiovascular: denies: chest pain, palpitations, orthopnea, paroxysmal noc. dyspnea, edema, light headedness, other Gastrointestinal: denies: nausea, vomiting, abdominal pain, diarrhea, constipation, melena, hematochezia, other Genitourinary: denies: dysuria, frequency, incontinence, hematuria, retention, other - Medication Medications: Active Medications Generic Name Dose Route Start Last Admin Trade Name Freq PRN Reason Stop Dose Admin Acetaminophen 650 mg 11/02/19 12:31 11/03/19 06:03 Tylenol PO 650 mg Q4H PRN Administration Headache/Fever or Pain Hydrocodone Bitart/Acetaminophen 2 tab 11/02/19 07:15 11/03/19 17:45 [place] 5/325 PO 2 tab Q4H PRN Administration For Moderate Pain 4-6 Aspirin 81 mg 11/02/19 21:00 11/03/19 21:01 Ecotrin PO 81 mg BID YVETTE Administration Diphenhydramine HCl 25 mg 11/02/19 07:15 11/03/19 21:01 Benadryl PO 25 mg Q3H PRN Administration Itching Duloxetine HCl 60 mg 11/02/19 21:00 11/03/19 21:01 Cymbalta PO 60 mg HS YVETTE Administration Emollient Cream 0 gm 11/02/19 07:15 11/02/19 17:18 Hydrocerin Cream TOP 1 applic PRN PRN Administration Itching Ferrous Gluconate 324 mg 11/03/19 08:00 11/03/19 17:46 Fergon PO 324 mg BID-WM YVETTE Administration Fentanyl Citrate 500 mcg/ 100 mls @ 6 mls/hr 11/02/19 07:15 11/03/19 16:05 Bupivacaine HCl 10 ml/ Sodium EPIDURAL 100 mls Chloride INF YVETTE Administration Sodium Chloride 1,000 mls @ 100 mls/hr 11/02/19 12:31 11/03/19 18:50 Normal Saline 0.9% IV Not Given .Q10H YVETTE Iron/Minerals/Multivitamins 1 tab 11/03/19 09:00 11/03/19 10:25 Theragran M PO Not Given DAILY YVETTE Ketorolac Tromethamine 30 mg 11/02/19 18:00 11/03/19 17:46 Toradol IM 11/07/19 14:01 30 mg 0200,1000,1800 YVETTE Administration Polyethylene Glycol 17 gm 11/03/19 09:00 11/03/19 08:23 Miralax PO 17 gm DAILY YVETTE Administration Senna/Docusate Sodium 2 tab 11/03/19 09:00 11/03/19 21:01 Senokot S PO 2 tab BID YVETTE Administration Sodium Chloride 10 ml 11/02/19 12:31 11/03/19 21:03 Flush - Normal Saline IVF 10 ml PRN PRN Administration Saline Flush Tramadol HCl 100 mg 11/02/19 07:15 11/03/19 01:19 Ultram PO 100 mg Q6H PRN Administration Moderate Pain 4-6 Zolpidem Tartrate 5 mg 11/02/19 12:31 11/03/19 00:10 Ambien PO 5 mg HSPRN PRN Administration Insomnia - Exam General Appearance: NAD, awake alert Heart: RRR, no murmur, no gallops, no rubs, normal peripheral pulses Respiratory: CTAB, no wheezes, no rales, no ronchi, normal chest expansion, no tachypnea, normal percussion Gastrointestinal: soft, non-tender, non-distended, normal bowel sounds, no palpable masses, no hepatomegaly, no splenomegaly, no bruit Extremities: no edema Psychiatric: normal affect, normal behavior, A&O x 3 Hosp A/P - Plan #Left hip osteoarthritis -POD 1 s/p total knee arthroplasty -pain manangement per surgery -continue bowel regimen; if no bowel movement prior to possible DC tomorrow, consider dulcolax suppositories #anxiety continue duloxetine
[2019-11-04] MEDS: Ketorolac Tromethamine 30 MG/ML VIAL IM SCH ×3 (02:14→18:13)
[2019-11-04] MEDS: diphenhydrAMINE 25 MG CAP PO PRN (02:18)
[2019-11-04] MEDS: Sodium Chloride 0.9% 1,000 ML IV SCH ×3 (03:32→23:45)
[2019-11-04] MEDS: HYDROcodone/Acetaminophen 5/325 mg Tablet PO PRN (05:58)
[2019-11-04 06:12] LABS: Hemoglobin 10.5 g/dL (12.0-16.0); Mean Corpuscular HGB CONC 33.6 g/dL (32.0-36.0); Mean Corpuscular Hemoglobin 30.5 pg (27.0-31.0); Mean Corpuscular Volume 90.6 fL (78.0-98.0); Mean Platelet Volume 8.3 fL (7.4-10.4); Platelet Count 194 thou/uL (130-400); RBC Distribution Width 13.3 % (11.5-14.5); Red Blood Cell (RBC) Count 3.45 mill/uL (4.20-5.40); White Blood Cell (WBC) Count 9.6 thou/uL (4.8-10.8)
[2019-11-04] MEDS: Aspirin 81 mg Enteric Coated Tablet PO SCH ×2 (08:36→20:38)
[2019-11-04] MEDS: Polyethylene Glycol 3350 17 GM Packet PO SCH (08:36)
[2019-11-04] MEDS: Gabapentin 400 MG CAP PO SCH ×2 (08:36→20:38)
[2019-11-04] MEDS: Multivitamin W/ Minerals 1 TAB PO SCH (08:36)
[2019-11-04] MEDS: Senokot S 8.6-50 MG TAB PO SCH ×2 (08:36→20:38)
[2019-11-04] MEDS: Ferrous Gluconate 324 MG TAB PO SCH ×2 (08:36→18:12)
[2019-11-04] MEDS: Cyclobenzaprine 10 MG TAB PO SCH ×3 (08:36→20:39)
[2019-11-04] MEDS ORDERED: Bisacodyl 10 MG SUPP PR PRN (09:53)
--- NOTE | 2019-11-04 09:56 | PDOC.HOSPP ---
- Subjective Encounter Date: 11/04/19 Encounter Time: 09:00 Subjective: no overnight events. this morning, complains of increased left hip pain. No bowel movement since admission despite scheduled senna and docusate - Objective Vital Signs & Weight: Vital Signs (12 hours) Temp Pulse Resp BP Pulse Ox 11/04/19 08:06 98.4 F 93 14 110/75 97 11/04/19 00:04 98.3 F 95 16 113/65 98 Weight Admit Weight 215 lb Weight 215 lb I&O: 11/03/19 11/04/19 11/05/19 06:59 06:59 06:59 Intake Total 1560 1920 Output Total 300 1350 Balance 1260 570 Result Diagrams: 11/04/19 05:25 Hospitalist ROS - Review of Systems Constitutional: denies: fever, chills, sweats, weakness, malaise, other Cardiovascular: denies: chest pain, palpitations, orthopnea, paroxysmal noc. dyspnea, edema, light headedness, other Gastrointestinal: denies: nausea, vomiting, abdominal pain, diarrhea, constipation, melena, hematochezia, other Genitourinary: denies: dysuria, frequency, incontinence, hematuria, retention, other - Medication Medications: Active Medications Generic Name Dose Route Start Last Admin Trade Name Freq PRN Reason Stop Dose Admin Acetaminophen 650 mg 11/02/19 12:31 11/03/19 06:03 Tylenol PO 650 mg Q4H PRN Administration Headache/Fever or Pain Hydrocodone Bitart/Acetaminophen 2 tab 11/02/19 07:15 11/04/19 05:58 [place] 5/325 PO 2 tab Q4H PRN Administration For Moderate Pain 4-6 Aspirin 81 mg 11/02/19 21:00 11/04/19 08:36 Ecotrin PO 81 mg BID YVETTE Administration Cyclobenzaprine HCl 10 mg 11/04/19 09:00 11/04/19 08:36 Flexeril PO 10 mg TID YVETTE Administration Diphenhydramine HCl 25 mg 11/02/19 07:15 11/04/19 02:18 Benadryl PO 25 mg Q3H PRN Administration Itching Duloxetine HCl 60 mg 11/02/19 21:00 11/03/19 21:01 Cymbalta PO 60 mg HS YVETTE Administration Emollient Cream 0 gm 11/02/19 07:15 11/02/19 17:18 Hydrocerin Cream TOP 1 applic PRN PRN Administration Itching Ferrous Gluconate 324 mg 11/03/19 08:00 11/04/19 08:36 Fergon PO 324 mg BID-WM YVETTE Administration Gabapentin 1,200 mg 11/04/19 09:00 11/04/19 08:36 Neurontin PO 1,200 mg BID YVETTE Administration Fentanyl Citrate 500 mcg/ 100 mls @ 6 mls/hr 11/02/19 07:15 11/03/19 16:05 Bupivacaine HCl 10 ml/ Sodium EPIDURAL 100 mls Chloride INF YVETTE Administration Sodium Chloride 1,000 mls @ 100 mls/hr 11/02/19 12:31 11/04/19 03:32 Normal Saline 0.9% IV Not Given .Q10H YVETTE Iron/Minerals/Multivitamins 1 tab 11/03/19 09:00 11/04/19 08:36 Theragran M PO 1 tab DAILY YVETTE Administration Ketorolac Tromethamine 30 mg 11/02/19 18:00 11/04/19 02:14 Toradol IM 11/07/19 14:01 30 mg 0200,1000,1800 YVETTE Administration Polyethylene Glycol 17 gm 11/03/19 09:00 11/04/19 08:36 Miralax PO 17 gm DAILY YVETTE Administration Senna/Docusate Sodium 2 tab 11/03/19 09:00 11/04/19 08:36 Senokot S PO 2 tab BID YVETTE Administration Sodium Chloride 10 ml 11/02/19 12:31 11/04/19 02:15 Flush - Normal Saline IVF 10 ml PRN PRN Administration Saline Flush Tramadol HCl 100 mg 11/02/19 07:15 11/03/19 01:19 Ultram PO 100 mg Q6H PRN Administration Moderate Pain 4-6 Zolpidem Tartrate 5 mg 11/02/19 12:31 11/03/19 21:33 Ambien PO 5 mg HSPRN PRN Administration Insomnia - Exam General Appearance: NAD, awake alert Heart: no murmur, no gallops, no rubs, normal peripheral pulses Heart - other findings: regular rhythm, tachycardic Respiratory: CTAB, no wheezes, no rales, no ronchi, normal chest expansion, no tachypnea, normal percussion Gastrointestinal: soft, non-tender, non-distended, normal bowel sounds, no palpable masses, no hepatomegaly, no splenomegaly, no bruit Extremities: no edema Extremities - other findings: bandge over left hip with no surrounding signs of infection Psychiatric: normal affect, normal behavior, A&O x 3 Hosp A/P - Plan #Left hip osteoarthritis -POD 3 s/p total knee arthroplasty -pain manangement per surgery -continue bowel regimen;no bowel movement since admission -started dulcolax PRN constipation in addition to senna/doc and miralax #anxiety continue duloxetine
[2019-11-04] MEDS: HYDROcodone/Acetaminophen 10/325 mg Tablet PO PRN ×3 (11:52→20:38)
[2019-11-04] MEDS: DULoxetine 30 MG CAP PO SCH (20:38)
[2019-11-04] MEDS: Zolpidem Tartrate 5 MG TAB PO PRN (22:31)
[2019-11-05] MEDS: Ketorolac Tromethamine 30 MG/ML VIAL IM SCH ×2 (01:55→10:47)
[2019-11-05] MEDS: HYDROcodone/Acetaminophen 10/325 mg Tablet PO PRN ×2 (05:09→09:39)
[2019-11-05 05:42] LABS: Hemoglobin 10.5 g/dL (12.0-16.0); Mean Corpuscular HGB CONC 31.1 g/dL (32.0-36.0); Mean Corpuscular Hemoglobin 28.3 pg (27.0-31.0); Mean Corpuscular Volume 91.2 fL (78.0-98.0); Mean Platelet Volume 8.1 fL (7.4-10.4); Platelet Count 222 thou/uL (130-400); RBC Distribution Width 13.2 % (11.5-14.5); Red Blood Cell (RBC) Count 3.72 mill/uL (4.20-5.40)
[2019-11-05] MEDS: Ferrous Gluconate 324 MG TAB PO SCH (07:42)
[2019-11-05] MEDS: Cyclobenzaprine 10 MG TAB PO SCH (07:42)
[2019-11-05] MEDS: Gabapentin 400 MG CAP PO SCH (07:42)
[2019-11-05] MEDS: Aspirin 81 mg Enteric Coated Tablet PO SCH (07:42)
[2019-11-05] MEDS: Senokot S 8.6-50 MG TAB PO SCH (07:43)
[2019-11-05] MEDS: Multivitamin W/ Minerals 1 TAB PO SCH (07:43)
[2019-11-05] MEDS: Polyethylene Glycol 3350 17 GM Packet PO SCH (07:43)
[2019-11-05 08:57] VITALS: BP 100/69; TEMP 98.4
== END 2019-11-05 12:31 | disposition home health service (06) | DRG 470 ==
LOC: SURG A 11-02 05:40 → SJJU 11-02 11:50
PROVIDERS: ADMIT Orthopaedic Surgery; ATTEND Orthopaedic Surgery
PROC: 0SRB04Z Replacement of Left Hip Joint with Ceramic on Polyethylene Synthetic Substitute, Open Approach (ICD-10-PCS; principal; 2019-11-02)
DX: M16.12 Unilateral primary osteoarthritis, left hip (principal); Z96.641 Presence of right artificial hip joint; I10 Essential (primary) hypertension; F41.9 Anxiety disorder, unspecified; Z90.710 Acquired absence of both cervix and uterus; Z87.891 Personal history of nicotine dependence; Z11.59 Encounter for screening for other viral diseases
CPT/HCPCS: 36415; 72170; 85027; J0690; J1885; J2001; J2250; J2704; J3010; J3370; J3490; P9045; Q0163; S0020

== ENCOUNTER 2019-11-07 11:18 | Emergency (ER) | payer OTHER ==
[2019-11-07] MEDS ORDERED: Morphine 4 MG/ML VIAL ONE ×2 (12:13→14:39)
[2019-11-07] MEDS ORDERED: Ondansetron PF 4 MG/2 ML Vial ONE (12:13)
[2019-11-07 12:29] LABS: #Basophils 0.1 thou/uL (0.0-0.2); #Eosinphils 0.3 thou/uL (0.0-0.7); #Lymphocytes 2.2 thou/uL (1.20-3.40); #Monocytes 0.4 thou/uL (0.11-0.59); #Neutrophils 4.1 thou/uL (1.40-6.50); %Eosinophils 4.8 % (0.0-10.0); %Lymphocytes 30.5 % (21.0-51.0); %Monocytes 6.1 % (0.0-10.0); %Neutrophils 57.7 % (42.0-75.0); Hemoglobin 11.3 g/dL (12.0-16.0); Mean Corpuscular HGB CONC 32.8 g/dL (32.0-36.0); Mean Corpuscular Hemoglobin 29.9 pg (27.0-31.0); Mean Corpuscular Volume 91.1 fL (78.0-98.0); Mean Platelet Volume 7.4 fL (7.4-10.4); Platelet Count 278 thou/uL (130-400); RBC Distribution Width 13.3 % (11.5-14.5); Red Blood Cell (RBC) Count 3.79 mill/uL (4.20-5.40); White Blood Cell (WBC) Count 7.1 thou/uL (4.8-10.8)
[2019-11-07 12:58] LABS: ALT (SGPT) 9 U/L (8-55); AST (SGOT) 18 U/L (5-34); Albumin 3.5 g/dL (3.5-5.0); Alkaline Phosphatase 80 U/L (40-110); Anion Gap 12 mmol/L (10-20); BUN (Urea Nitrogen) 9 mg/dL (9.8-20.1); Bilirubin, Total 0.3 mg/dL (0.2-1.2); Calc. Creatinine Clearance 0 mL/min (70-130); Calcium 8.9 mg/dL (7.8-10.44); Carbon Dioxide 27 mmol/L (22-29); Chloride 103 mmol/L (98-107); Estimated GFR-MDRD Greater than 90; Globulin 2.7 g/dL (2.4-3.5); Glucose 109 mg/dL (70-105); Potassium 4.3 mmol/L (3.5-5.1); Protein, Total 6.2 g/dL (6.0-8.3); Sodium 138 mmol/L (136-145)
--- NOTE | 2019-11-07 13:00 | RAD ---
Exam:Left hip 2 views HISTORY: Hip replacement today. Difficulty walking. COMPARISON: 10/31/2016 FINDINGS: Uncomplicated left hip arthroplasty. Near anatomic alignment. IMPRESSION: Uncomplicated left hip arthroplasty.
== END 2019-11-07 15:27 | disposition home or self-care (01) ==
LOC: ERS 11:18
DX: G89.29 Other chronic pain (principal); M25.552 Pain in left hip; F41.9 Anxiety disorder, unspecified; I10 Essential (primary) hypertension; M19.90 Unspecified osteoarthritis, unspecified site; Z79.891 Long term (current) use of opiate analgesic; Z79.899 Other long term (current) drug therapy
CPT/HCPCS: 80053; 85025; 96374; 96375; 96376; J2270; J2405

== ENCOUNTER 2019-12-03 04:40 | Outpatient (CLI) | payer OTHER ==
[2019-12-03 10:51] LABS: #Basophils 0.1 thou/uL (0.0-0.2); #Eosinphils 0.4 thou/uL (0.0-0.7); #Lymphocytes 3.4 thou/uL (1.20-3.40); #Monocytes 0.5 thou/uL (0.11-0.59); #Neutrophils 4.4 thou/uL (1.40-6.50); %Basophils 0.7 % (0.0-1.0); %Eosinophils 4.1 % (0.0-10.0); %Lymphocytes 39.2 % (21.0-51.0); %Monocytes 5.2 % (0.0-10.0); %Neutrophils 50.8 % (42.0-75.0); Hemoglobin 13.6 g/dL (12.0-16.0); Mean Corpuscular Hemoglobin 29.2 pg (27.0-31.0); Mean Corpuscular Volume 91.1 fL (78.0-98.0); Mean Platelet Volume 8.7 fL (7.4-10.4); Platelet Count 268 thou/uL (130-400); RBC Distribution Width 14.2 % (11.5-14.5); Red Blood Cell (RBC) Count 4.66 mill/uL (4.20-5.40); White Blood Cell (WBC) Count 8.7 thou/uL (4.8-10.8)
[2019-12-04 12:37] LABS: SARS-CoV-2 MS2 Positive; SARS-CoV-2 N Gene Negative; SARS-CoV-2 S Gene Negative; SARS-CoV-2 orf1ab Negative
== END 2019-12-03 04:41 | disposition home or self-care (01) ==
LOC: LABBT 04:40
PROVIDERS: ATTEND Orthopaedic Surgery
DX: Z01.812 Encounter for preprocedural laboratory examination (principal); Z11.59 Encounter for screening for other viral diseases; T81.31XA Disruption of external operation (surgical) wound, not elsewhere classified, initial encounter
CPT/HCPCS: 85025; 85652; 86140; 87635; U0003

== ENCOUNTER 2019-12-07 06:54 | Day surgery (SDC) | payer OTHER ==
[2019-12-02 09:09] VITALS: BMI 39.3
[2019-12-07] MEDS ORDERED: Vancomycin 1.5 GRAM/300 ML BAG ONE (07:29)
[2019-12-07] MEDS ORDERED: Midazolam HCl 2 mg/2 ml Vial ONE (08:06)
[2019-12-07] MEDS ORDERED: Lidocaine 2% Jelly 5 ML TUBE ONE (09:20)
[2019-12-07] MEDS ORDERED: Fentanyl 100 MCG/2 ML VIAL ONE ×3 (09:20→11:46)
--- NOTE | 2019-12-07 11:17 | RAD ---
EXAM: One view of the left hip HISTORY: Left hip injection in surgery COMPARISON: None FINDINGS/IMPRESSION: A single limited fluoroscopic view of the left hip shows the patient is status p ost left hip arthroplasty. A needle is seen in the region of the femoral neck of the prosthesis. No perihardware lucency is seen.
[2019-12-07] MEDS ORDERED: Lidocaine 1% PF 5 ML VIAL ONE (12:53)
[2019-12-07] MEDS ORDERED: Dexamethasone 20 MG/5 ML VIAL ONE (12:53)
[2019-12-07] MEDS ORDERED: Rocuronium Bromide 10 MG/ML (10ML VIAL) ONE (12:53)
[2019-12-07] MEDS ORDERED: PROPOFOL 200 MG/20 ML VIAL ONE (12:53)
[2019-12-07] MEDS ORDERED: Glycopyrrolate 0.2 MG/ML 5 ML SYRINGE ONE (12:53)
[2019-12-07] MEDS ORDERED: HYDROcodone/Acetaminophen 5/325 mg Tablet ONE (13:31)
--- NOTE | 2019-12-08 07:15 | OP ---
DATE OF PROCEDURE: 12/07/2019 PREOPERATIVE DIAGNOSIS: Left total hip arthroplasty with a wound dehiscence, concerning for infection. POSTOPERATIVE DIAGNOSIS: Left 1 cm wound dehiscence with fat necrosis, left hip , status post total hip arthroplasty. PROCEDURES PERFORMED: 1. Aspiration of left hip. 2. Irrigation and debridement with primary closure of a 1 cm fat necrosis wound. MEDICAL RECORD CONSULTANT: Dionte Jalloh. ANESTHESIA: Dr. Manrique. The patient received a general endotracheal intubation. ESTIMATED BLOOD LOSS: 30 mL. TOURNIQUET TIME: None. IMPLANTS: None. EXPLANTS: None. ANTIBIOTICS: 1.5 g of vancomycin and 2 g of Ancef after aspiration of the hip. CULTURES SENT: One hip culture, deep from aspirate, and one deep wound culture. COMPLICATIONS: None. HISTORY OF PRESENT ILLNESS: Ms. Paredes is a 53-year-old female, status post a total hip arthroplasty performed by nc on 10/26/2019. The patient had a 1 cm wound that was not healing. She had no consistent drainage. No significant fevers. The patient has slightly elevated CRP at 1.3 and ESR of 38. The patient had some granulation over the wound, but did not completely seal to heal the wound, continued to follow it. I discussed with her risks and benefits of irrigation, incision and drainage, with excision of this skin line to help with closure, at the same time , I was going to perform exploration of the wound and aspirate the hip to ensure that there were no signs of infection. I discussed the risks and benefits of the surgery with the patient to include pain, scar, bleeding, infection, damage to vital structures, decreased range of motion or strength, need for further surgery to include revision, explant, damage to vital structures, loss of life or limb. The patient understands risks and benefits of procedure and elected to proceed. DESCRIPTION OF PROCEDURE: Time-out was performed designating the left hip as the operative site based on site, consents, and markings. Procedure #1: After time-out, I prepped with alcohol, Betadine, and finally ChloraPrep to completely clean the area. We toweled out the area for the hip. Under fluoroscopic guidance, I looked and felt the femoral pulse and moved laterally to place my 18-gauge needle in an oblique angle about 30 degrees to touch the femoral implant. I felt grind of the bone and took a spot view, showing I was in the patient's hip. I aspirated on 2 or 3 tries, changing my angle. The fourth try, I started to see blood, which I think was from the multiple passing attempts. I was unable to get any substantial fluid out of the patient's left hip joint, ensured that I had made different angulations both toward the head and away from the head, down the shaft, ensured that I had gotten any potential pocket around the patient's femoral neck of the implant. Upon completion of this, I sent that off for cultures. I do not feel that it was likely infected because I did not get a fluid aspirate. On completion of this procedure, I placed a Band-Aid. Procedure #2: We then placed the patient in a lateral position. I prepped and draped with Betadine the left hip. After completion of time-out for the left hip, I bluntly dissected through the granulation tissue and what looked to appear fat necrosis. The wound did not track to the IT band, it was contained within about the 2 cm of the granulation tissue that was noted inferiorly. We bluntly dissected, took a deep culture from the wound, which was sent to path. We then cleaned the skin edges up to create a bleeding edge. We washed with 3 L of fluid. On completion of this, we closed with Prolene sutures, trauma stitches with horizontal mattress to beatriz the skin. The patient will be discharged to home today. Follow up in 2 weeks to have sutures removed. The patient will be weightbearing as tolerated. The patient will be sent home with [facility]. The patient's outlook is guarded. Job ID: [id number] [facility]
== END 2019-12-07 14:10 | disposition home or self-care (01) ==
LOC: SDC 06:54
PROVIDERS: ATTEND Orthopaedic Surgery
PROC: 0JQC0ZZ Repair Pelvic Region Subcutaneous Tissue and Fascia, Open Approach (ICD-10-PCS; principal; 2019-12-07)
DX: T81.31XA Disruption of external operation (surgical) wound, not elsewhere classified, initial encounter (principal); I10 Essential (primary) hypertension; Z79.82 Long term (current) use of aspirin; Z79.899 Other long term (current) drug therapy; Z87.891 Personal history of nicotine dependence; Z88.2 Allergy status to sulfonamides
CPT/HCPCS: 76000; 87070; 87077; 87186; 87205; J0690; J1100; J2250; J2704; J3010; J3370

== ENCOUNTER 2019-12-19 10:37 | Emergency (ER) | payer OTHER ==
[2019-12-19 11:33] LABS: #Basophils 0.1 thou/uL (0.0-0.2); #Eosinphils 0.1 thou/uL (0.0-0.7); #Lymphocytes 2.2 thou/uL (1.20-3.40); #Monocytes 0.4 thou/uL (0.11-0.59); #Neutrophils 5.6 thou/uL (1.40-6.50); %Basophils 0.9 % (0.0-1.0); %Eosinophils 1.2 % (0.0-10.0); %Lymphocytes 26.2 % (21.0-51.0); %Monocytes 4.7 % (0.0-10.0); %Neutrophils 66.9 % (42.0-75.0); Hemoglobin 13.1 g/dL (12.0-16.0); Mean Corpuscular HGB CONC 32.6 g/dL (32.0-36.0); Mean Corpuscular Hemoglobin 29.7 pg (27.0-31.0); Mean Corpuscular Volume 91.1 fL (78.0-98.0); Mean Platelet Volume 7.8 fL (7.4-10.4); Platelet Count 299 thou/uL (130-400); RBC Distribution Width 13.9 % (11.5-14.5); Red Blood Cell (RBC) Count 4.41 mill/uL (4.20-5.40); White Blood Cell (WBC) Count 8.3 thou/uL (4.8-10.8)
[2019-12-19] MEDS ORDERED: Morphine 4 MG/ML VIAL ONE (11:40)
[2019-12-19] MEDS ORDERED: Ondansetron PF 4 MG/2 ML Vial ONE (11:45)
[2019-12-19 11:56] LABS: ALT (SGPT) 16 U/L (8-55); AST (SGOT) 22 U/L (5-34); Albumin 4.3 g/dL (3.5-5.0); Alkaline Phosphatase 93 U/L (40-110); Anion Gap 12 mmol/L (10-20); BUN (Urea Nitrogen) 11 mg/dL (9.8-20.1); Bilirubin, Total 1.1 mg/dL (0.2-1.2); Calc. Creatinine Clearance 0 mL/min (70-130); Calcium 9.7 mg/dL (7.8-10.44); Carbon Dioxide 28 mmol/L (22-29); Chloride 103 mmol/L (98-107); Estimated GFR-MDRD Greater than 90; Globulin 2.9 g/dL (2.4-3.5); Glucose 107 mg/dL (70-105); Potassium 3.9 mmol/L (3.5-5.1); Protein, Total 7.2 g/dL (6.0-8.3); Sodium 139 mmol/L (136-145)
[2019-12-19] MEDS ORDERED: Lidocaine 1% (PF) 30 ML VIAL ONE (12:41)
[2019-12-19] MEDS ORDERED: Ketorolac Tromethamine 30 MG/ML VIAL ONE (13:46)
[2019-12-19 14:42] LABS: RBC Count-Automated (BF) 2405 /cu.mm; WBC/Nucleated-Auto (BF) 263 uL
[2019-12-19 14:43] LABS: BF Color Yellow; Body Fluid Source Synovial Fluid; Clarity Hazy (Clear); Tube # EDTA
[2019-12-19 15:00] LABS: BF Segmented Neutrophils 20 %; Cell Count Non Hematic 71 %; Lymphocytes 9 %
--- NOTE | 2019-12-19 15:46 | RAD ---
RIGHT KNEE TWO VIEWS: History: Knee pain. History of infection. Swelling in knee. FINDINGS: There are some moderate arthritic change. There is medial compartment narrowing noted. There is some patellofemoral degenerative change. There is a moderate joint effusion seen. Underlying infection is not excluded. IMPRESSION: Arthritic changes of the knee with moderate joint effusion. No bony erosive or destructive type juarez e. [place] [facility] [place]
== END 2019-12-19 15:40 | disposition home or self-care (01) ==
LOC: ERS 10:37
DX: M17.11 Unilateral primary osteoarthritis, right knee (principal); I10 Essential (primary) hypertension; F41.9 Anxiety disorder, unspecified; Z79.899 Other long term (current) drug therapy
CPT/HCPCS: 20611; 36415; 80053; 83605; 85025; 85060; 87040; 87070; 87205; 89051; 96374; 96375; J1885; J2001; J2270; J2405

== ENCOUNTER 2019-12-24 10:42 | Emergency (ER) | payer OTHER, SELFPAY ==
--- NOTE | 2019-12-24 11:32 | RAD ---
RIGHT KNEE 4 VIEWS: Date: 12/24/2019 INDICATION: History of right knee pain and arthritis. COMPARISON: Prior exam dated 12/19/2019. FINDINGS: There is slightly less prominent joint capsular distention when compared to the prior exam. Mild oste oarthritic change is similar appearing. No acute fracture is evident. No radiopaque foreign body is e vident. IMPRESSION: Slightly less pronounced joint capsular distention of the right knee with stable osteoarthritic juarez e. POS: [facility]
[2019-12-24] MEDS ORDERED: Ketorolac Tromethamine 30 MG/ML VIAL ONE (12:46)
== END 2019-12-24 13:10 | disposition home or self-care (01) ==
LOC: ERS 10:42
DX: M25.461 Effusion, right knee (principal); I10 Essential (primary) hypertension; M19.90 Unspecified osteoarthritis, unspecified site; F41.9 Anxiety disorder, unspecified; Z79.899 Other long term (current) drug therapy
CPT/HCPCS: 96372; J1885

== ENCOUNTER 2020-02-21 08:26 | Outpatient (CLI) | payer OTHER ==
--- NOTE | 2020-02-21 12:15 | MRI ---
MRI OF THE RIGHT KNEE PERFORMED WITHOUT CONTRAST ENHANCEMENT: HISTORY: Right knee pain. FINDINGS: The anterior cruciate ligament is intact. The posterior cruciate ligament shows some increased signa l change near the tibial attachment suggesting some internal mucoid degeneration. There is a posterior horn medial meniscus tear. This may actually represent 2 separate teas. There is a partial tear near the meniscal root region with a truncated appearance to the free edge of the m eniscus and what appears to be a separate tear along the superior articular surface of the mid portio n of the posterior horn. There is some mild meniscal subluxation related to these changes. There ar e arthritic changes of the medial compartment of the knee. There is cartilage loss involving the med ial femoral condyle. On the lateral side, there is a more complex tear involving the posterior horn-body junction region. Moderate truncation to the free edge of the body of the meniscus. The medial as well as the lateral collateral ligaments and iliotibial band regions are unremarkable. Patellar articular cartilage shows some mild articular cartilage loss along the medial facet and more prominent along the superior aspect. The medial and lateral patellar retinaculum and quadriceps and patellar tendons are normal. There is a chondral body measuring approximately 10 mm in size which i s anterior to the tibial attachment of the ACL. IMPRESSION: 1. Posterior horn and body junction region tear of the lateral meniscus and a posterior horn medial meniscus tear as discussed above. 2. Fairly large approximately 10 mm articular body seen directly anterior to the tibial attachment o f the anterior cruciate ligament. POS: [facility]
== END 2020-02-21 08:27 | disposition home or self-care (01) ==
LOC: SCSMRI 08:26
PROVIDERS: ATTEND Orthopaedic Surgery
DX: M17.9 Osteoarthritis of knee, unspecified (principal); S83.281A Other tear of lateral meniscus, current injury, right knee, initial encounter

== ENCOUNTER 2020-03-20 07:52 | Outpatient (CLI) | payer OTHER ==
[2020-03-20 16:38] LABS: INR-International Normal Ratio 0.9; Prothrombin Time 12.5 sec (12.0-14.7)
[2020-03-20 17:03] LABS: Band 3 % (5-11); Eosinophils 3 % (0-10); Lymphocytes 34 % (21-51); MDiff Complete? YES; Mean Corpuscular HGB CONC 32.6 g/dL (32.0-36.0); Mean Corpuscular Hemoglobin 29.6 pg (27.0-31.0); Mean Corpuscular Volume 90.8 fL (78.0-98.0); Mean Platelet Volume 8.3 fL (7.4-10.4); Monocytes 8 % (0-10); Neutrophil 52 % (42-75); Platelet Count 315 thou/uL (130-400); Platelet Morphology Comment Appears Adequate; RBC Distribution Width 13.3 % (11.5-14.5); RBC Morphology Normal; Red Blood Cell (RBC) Count 5.05 mill/uL (4.20-5.40); White Blood Cell (WBC) Count 8.9 thou/uL (4.8-10.8)
[2020-03-21 11:06] LABS: SARS-CoV-2 MS2 Positive; SARS-CoV-2 N Gene Negative; SARS-CoV-2 S Gene Negative; SARS-CoV-2 by NAA Not Detected (NotDetected); SARS-CoV-2 orf1ab Negative
== END 2020-03-20 07:53 | disposition home or self-care (01) ==
LOC: LABBT 07:52
PROVIDERS: ATTEND Orthopaedic Surgery
DX: Z01.812 Encounter for preprocedural laboratory examination (principal); S83.281A Other tear of lateral meniscus, current injury, right knee, initial encounter; Z20.828 Contact with and (suspected) exposure to other viral communicable diseases
CPT/HCPCS: 85025; 85610; 87635; U0003

== ENCOUNTER 2020-03-23 06:04 | Day surgery (SDC) | payer OTHER ==
[2020-03-22 11:14] VITALS: BMI 39.4
[2020-03-23] MEDS ORDERED: Fentanyl 100 MCG/2 ML VIAL ONE ×3 (06:27→08:44)
[2020-03-23] MEDS ORDERED: Bupivacaine/Epinephrine 0.25% 30 ML VIAL ONE (06:40)
[2020-03-23] MEDS ORDERED: Lidocaine 1% (PF) 30 ML VIAL ONE (06:40)
[2020-03-23] MEDS ORDERED: Midazolam HCl 2 mg/2 ml Vial ONE (06:59)
[2020-03-23] MEDS ORDERED: HYDROcodone/Acetaminophen 5/325 mg Tablet ONE (09:42)
[2020-03-23] MEDS ORDERED: PROPOFOL 200 MG/20 ML VIAL ONE (11:46)
[2020-03-23] MEDS ORDERED: Ondansetron PF 4 MG/2 ML Vial ONE (11:46)
[2020-03-23] MEDS ORDERED: Dexamethasone 20 MG/5 ML VIAL ONE (11:46)
[2020-03-23] MEDS ORDERED: EPHEDRINE 25 MG/5 ML SYRINGE ONE (11:46)
[2020-03-23] MEDS ORDERED: Lidocaine 1% PF 5 ML VIAL ONE (11:46)
--- NOTE | 2020-03-24 07:58 | OP ---
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 POSTOPERATIVE DIAGNOSES: 1. Right grade 4 lateral femoral condyle 5 x 8 mm defect. 2. Grade 3 to 4 changes, medial femoral condyle. 3. Grade 3 to 4 changes, trochlear groove. 4. Degenerative lateral meniscus tear. 5. Degenerative medial meniscus tear. PROCEDURE PERFORMED: Tricompartmental debridement and shaving. DIE SINKER: None. ANESTHESIA: Dr. Manrique. The patient received an LMA with 30 mL of 0.25% Marcaine with epi preprocedure and 25 mL of lidocaine 1% postprocedure. TOURNIQUET TIME: 18 minutes. ANTIBIOTICS: Ancef. BLOOD LOSS: Less than 30 mL. COMPLICATIONS: None. HISTORY OF PRESENT ILLNESS: Ms. Paredes is a 54-year-old female, who presented with an acute onset of knee pain within the last 3 months, the patient had bilateral total hips performed this calendar year. The patient's MRI evidence showed early tricompartmental changes, degenerative changes with degenerative meniscus. I discussed with her the risks and benefits of debridement and shaving. Discussed given the patient's limited duration of symptoms, try this small procedure to see if would be effective in keep her for a period of time. I discussed that ultimately she may require total knee arthroplasty. I discussed the risks and benefits of surgery to include pain, scar, bleeding, infection, damage to vital structures, decreased range of motion and strength, continued pain despite surgical intervention, blood clots, loss of life or limb. The patient understood the risks and benefits of procedure and elected to proceed. DESCRIPTION OF PROCEDURE: Time-out was performed designating the patient's right lower extremity as the operative site based on site, consent, and marking. After time-out, the patient's right lower extremity was prepped and draped in standard sterile fashion. After performing this, an injection of 25 mL of 0.25% Marcaine with epi was injected in the joint. Tourniquet was brought up and it was left up for a total of 18 minutes. An anterolateral portal site placed under direct visualization, I debrided the fat pad. There was a little cyclops appearing lesion, but the ACL was intact within the knee. I removed that anteriorly. We did our diagnostic scope within the pouch, debriding off some of the trochlear groove, free cartilage, small osteophytes, damage on both the patella and the trochlear groove, looked in medial and lateral gutters. I debrided off the patient's degenerative meniscal tear to clean remnants and debrided off a full-thickness flap of her lateral compartment, cleaned that to stable cartilage . We smoothed out the medial compartment. There were grade 4 changes of medial compartment also, so we did our visualization of all three compartments, washed the joint out. I injected lidocaine in the suture sites and intra-articular. The patient's outlook is guarded. We will allow her to weightbear as tolerated. Follow her postop. Job ID: [id number] [facility]
== END 2020-03-23 10:15 | disposition home or self-care (01) ==
LOC: SDC 06:04
PROVIDERS: ATTEND Orthopaedic Surgery
PROC: 0SBC4ZZ Excision of Right Knee Joint, Percutaneous Endoscopic Approach (ICD-10-PCS; principal; 2020-03-23)
DX: S83.281A Other tear of lateral meniscus, current injury, right knee, initial encounter (principal); S83.241A Other tear of medial meniscus, current injury, right knee, initial encounter; M23.91 Unspecified internal derangement of right knee; M17.10 Unilateral primary osteoarthritis, unspecified knee; I10 Essential (primary) hypertension; Z79.899 Other long term (current) drug therapy; Z87.891 Personal history of nicotine dependence; Z88.2 Allergy status to sulfonamides
CPT/HCPCS: J0690; J1100; J2001; J2250; J2405; J2704; J3010

== ENCOUNTER 2020-06-22 15:30 | Outpatient (CLI) | payer OTHER | END 2020-06-22 15:31 | disposition home or self-care (01) | LOC: BICRAD 15:30 | PROVIDERS: ATTEND Internal Medicine | DX: Z02.71 Encounter for disability determination (principal); M17.12 Unilateral primary osteoarthritis, left knee; M25.462 Effusion, left knee; Z96.643 Presence of artificial hip joint, bilateral | CPT/HCPCS: 73523 ==

== ENCOUNTER 2020-11-03 08:40 | Outpatient (CLI) | payer OTHER | END 2020-11-03 08:41 | disposition home or self-care (01) | LOC: BICRAD 08:40 | PROVIDERS: ATTEND Family Medicine | DX: J06.9 Acute upper respiratory infection, unspecified (principal) | CPT/HCPCS: 71046 ==

== ENCOUNTER 2021-02-05 12:11 | Outpatient (CLI) | payer OTHER | END 2021-02-05 12:12 | disposition home or self-care (01) | LOC: BICRAD 12:11 | PROVIDERS: ATTEND Internal Medicine | DX: R06.00 Dyspnea, unspecified (principal); R91.8 Other nonspecific abnormal finding of lung field | CPT/HCPCS: 71046 ==

== ENCOUNTER 2021-04-16 15:24 | Outpatient (CLI) | payer OTHER | END 2021-04-16 15:25 | disposition home or self-care (01) | LOC: BICRAD 15:24 | PROVIDERS: ATTEND Nurse Practitioner Family | DX: M79.671 Pain in right foot (principal); M19.071 Primary osteoarthritis, right ankle and foot ==

== ENCOUNTER 2021-05-02 10:29 | Outpatient (CLI) | payer OTHER | END 2021-05-02 10:30 | disposition home or self-care (01) | LOC: DTY/OP 10:29 | PROVIDERS: ATTEND Surgery | DX: K22.70 Barrett's esophagus without dysplasia (principal); Z68.41 Body mass index [BMI] 40.0-44.9, adult; Z98.84 Bariatric surgery status | CPT/HCPCS: 97802 ==

== ENCOUNTER 2021-05-23 09:26 | Outpatient (CLI) | payer OTHER ==
[2021-05-23 21:05] LABS: SARS-CoV-2 PCR by NAA Not Detected (NotDetected)
== END 2021-05-23 09:27 | disposition home or self-care (01) ==
LOC: LABBT 09:26
PROVIDERS: ATTEND Surgery
DX: Z01.812 Encounter for preprocedural laboratory examination (principal); Z98.84 Bariatric surgery status; Z20.822 Contact with and (suspected) exposure to COVID-19; K59.09 Other constipation
CPT/HCPCS: U0003; U0005

== ENCOUNTER 2021-05-28 05:36 | Day surgery (SDC) | payer OTHER ==
[2021-05-23 11:21] VITALS: BMI 40.4
[2021-05-28] MEDS ORDERED: ceFAZolin 2 GM/DEX 5% 100 ML BAG ONE ×2 (06:08)
[2021-05-28] MEDS ORDERED: SUGAMMADEX SODIUM 200 MG/2 ML VIAL ONE (06:16)
[2021-05-28] MEDS ORDERED: Famotidine/PF 20 mg/2ml Vial ONE ×2 (06:16→07:07)
[2021-05-28] MEDS ORDERED: Fentanyl 100 MCG/2 ML VIAL ONE ×4 (06:16→09:43)
[2021-05-28] MEDS ORDERED: Bupivacaine 0.25% 10 ML VIAL ONE (07:00)
[2021-05-28] MEDS ORDERED: Xylocaine 1% w/ Epi 1:100K 10 ML VIAL ONE (07:00)
[2021-05-28] MEDS ORDERED: Midazolam HCl 2 mg/2 ml Vial ONE (07:07)
[2021-05-28] MEDS ORDERED: PROPOFOL 200 MG/20 ML VIAL ONE (07:33)
[2021-05-28] MEDS ORDERED: Ondansetron PF 4 MG/2 ML Vial ONE (07:33)
[2021-05-28] MEDS ORDERED: Metoclopramide HCl 10 MG/2 ML VIAL ONE (07:33)
[2021-05-28] MEDS ORDERED: Lidocaine 1% PF 5 ML VIAL ONE (07:33)
[2021-05-28] MEDS ORDERED: Rocuronium Bromide 10 MG/ML (10ML VIAL) ONE (07:33)
[2021-05-28] MEDS ORDERED: Glycopyrrolate 0.2 MG/ML 5 ML SYRINGE ONE (07:33)
[2021-05-28] MEDS ORDERED: Dexamethasone 20 MG/5 ML VIAL ONE (07:33)
[2021-05-28] MEDS ORDERED: Ketorolac Tromethamine 30 MG/ML VIAL ONE (07:33)
[2021-05-28] MEDS ORDERED: HYDROmorphone 2 MG/ML VIAL ONE (08:10)
[2021-05-28] MEDS ORDERED: HYDROmorphone 0.5 MG/0.5 ML SYRINGE ONE (09:15)
[2021-05-28] MEDS ORDERED: Ondansetron ODT 4 MG TAB ONE (11:05)
== END 2021-05-28 11:25 | disposition home or self-care (01) ==
LOC: SDC 05:36
PROVIDERS: ATTEND Surgery
PROC: 0DP64CZ Removal of Extraluminal Device from Stomach, Percutaneous Endoscopic Approach (ICD-10-PCS; principal; 2021-05-28)
DX: K95.09 Other complications of gastric band procedure (principal); K21.9 Gastro-esophageal reflux disease without esophagitis; I10 Essential (primary) hypertension; E66.9 Obesity, unspecified; Z68.41 Body mass index [BMI] 40.0-44.9, adult; Z79.899 Other long term (current) drug therapy; Z88.2 Allergy status to sulfonamides
CPT/HCPCS: J1100; J1170; J1885; J2250; J2405; J2704; J2765; J3010; Q0162; S0020; S0028

== ENCOUNTER 2021-06-04 09:01 | Outpatient (CLI) | payer OTHER | END 2021-06-04 09:02 | disposition home or self-care (01) | LOC: DTY/OP 09:01 | PROVIDERS: ATTEND Surgery | DX: Z01.818 Encounter for other preprocedural examination (principal); K22.70 Barrett's esophagus without dysplasia; Z68.41 Body mass index [BMI] 40.0-44.9, adult; Z98.84 Bariatric surgery status | CPT/HCPCS: 97802 ==

== ENCOUNTER 2021-07-05 08:56 | Outpatient (CLI) | payer OTHER | END 2021-07-05 08:57 | disposition home or self-care (01) | LOC: DTY/OP 08:56 | PROVIDERS: ATTEND Surgery | DX: Z48.815 Encounter for surgical aftercare following surgery on the digestive system (principal); Z98.84 Bariatric surgery status | CPT/HCPCS: 97802 ==

== ENCOUNTER 2021-08-31 09:14 | Outpatient (CLI) | payer OTHER | END 2021-08-31 09:15 | disposition home or self-care (01) | LOC: DTY/OP 09:14 | PROVIDERS: ATTEND Surgery | DX: Z01.818 Encounter for other preprocedural examination (principal); K22.70 Barrett's esophagus without dysplasia; Z68.41 Body mass index [BMI] 40.0-44.9, adult; Z98.84 Bariatric surgery status | CPT/HCPCS: 97802 ==

== ENCOUNTER 2021-10-03 13:00 | Outpatient (CLI) | payer OTHER | END 2021-10-03 13:01 | disposition home or self-care (01) | LOC: DTY/OP 13:00 | PROVIDERS: ATTEND Surgery | DX: Z01.818 Encounter for other preprocedural examination (principal); K22.70 Barrett's esophagus without dysplasia; Z68.41 Body mass index [BMI] 40.0-44.9, adult; Z98.84 Bariatric surgery status | CPT/HCPCS: 97802 ==

== ENCOUNTER 2021-12-19 10:18 | Outpatient (CLI) | payer OTHER | END 2021-12-19 10:19 | disposition home or self-care (01) | LOC: LABBT 10:18 | PROVIDERS: ATTEND Surgery | DX: K22.70 Barrett's esophagus without dysplasia (principal); E66.01 Morbid (severe) obesity due to excess calories; K95.09 Other complications of gastric band procedure; Z20.822 Contact with and (suspected) exposure to COVID-19 | CPT/HCPCS: 87811 ==

== ENCOUNTER 2022-01-02 10:28 | Outpatient (CLI) | payer OTHER | END 2022-01-02 10:29 | disposition home or self-care (01) | LOC: LABBT 10:28 | PROVIDERS: ATTEND Surgery | DX: U07.1 COVID-19 (principal) | CPT/HCPCS: 87811 ==

== ENCOUNTER 2022-02-18 06:54 | Inpatient (IN) | payer OTHER ==
[2022-02-18] MEDS ORDERED: Scopolamine 1.5 mg/72 hour Patch ONE (07:29)
[2022-02-18] MEDS ORDERED: Enoxaparin Sodium 40 MG/0.4 ML SYRINGE ONE (07:30)
[2022-02-18] MEDS ORDERED: Midazolam HCl 2 mg/2 ml Vial ONE (08:34)
[2022-02-18] MEDS ORDERED: Bupivacaine/Epinephrine 0.25% 30 ML VIAL ONE (09:31)
[2022-02-18] MEDS ORDERED: fentaNYL Citrate/PF 100 MCG/2 ML SYRINGE ONE (09:34)
[2022-02-18] MEDS ORDERED: SUGAMMADEX SODIUM 200 MG/2 ML VIAL ONE (09:34)
[2022-02-18] MEDS ORDERED: Famotidine/PF 20 mg/2ml Vial ONE (09:34)
[2022-02-18] MEDS ORDERED: Ondansetron PF 4 MG/2 ML Vial IVP PRN (09:38)
[2022-02-18] MEDS ORDERED: Dextrose 50% Abboject 50 ML SYRINGE SLOW IVP PRN (09:38)
[2022-02-18] MEDS ORDERED: Promethazine HCl 25 MG/ML VIAL IM PRN ×2 (09:38→13:40)
[2022-02-18] MEDS ORDERED: Dextrose 5% in Water 1,000 ML IV PRN (09:38)
[2022-02-18] MEDS ORDERED: diphenhydrAMINE 50 MG/ML VIAL IVP PRN (09:38)
[2022-02-18] MEDS ORDERED: hydrALAZINE 20 MG/ML VIAL SLOW IVP PRN (09:38)
[2022-02-18] MEDS: D5 1/2 NS w/20 mEq KCL 1,000 ML IV SCH ×3 (09:45→21:04)
[2022-02-18] MEDS ORDERED: Sodium Chloride 0.9% 100 ML ONE (09:50)
[2022-02-18] MEDS ORDERED: cefOXitin 2 GM VIAL ONE (09:50)
[2022-02-18] MEDS ORDERED: Dexamethasone 20 MG/5 ML VIAL ONE (09:58)
[2022-02-18] MEDS ORDERED: Ondansetron PF 4 MG/2 ML Vial ONE (09:58)
[2022-02-18] MEDS ORDERED: Metoclopramide HCl 10 MG/2 ML VIAL ONE (09:58)
[2022-02-18] MEDS ORDERED: Rocuronium Bromide 10 MG/ML (10ML VIAL) ONE (09:58)
[2022-02-18] MEDS ORDERED: Ketorolac Tromethamine 30 MG/ML VIAL ONE (09:58)
[2022-02-18] MEDS ORDERED: PROPOFOL 200 MG/20 ML VIAL ONE (09:58)
[2022-02-18] MEDS ORDERED: Esmolol 100 MG/10 ML VIAL ONE (09:58)
[2022-02-18] MEDS ORDERED: Phenylephrine 10 MG/ML VIAL ONE (09:58)
[2022-02-18] MEDS ORDERED: Vecuronium 10 MG VIAL ONE (09:58)
[2022-02-18] MEDS ORDERED: Lidocaine 1% MPF 2 ML VIAL ONE (09:58)
[2022-02-18] MEDS: Ketorolac Tromethamine 30 MG/ML VIAL IVP SCH ×2 (12:00→18:22)
[2022-02-18] MEDS ORDERED: Promethazine HCl 25 MG/ML VIAL IVPB PRN (13:40)
[2022-02-18] MEDS ORDERED: Ondansetron HCl/PF 4 MG/2 ML Vial IVP PRN (13:40)
[2022-02-18] MEDS ORDERED: Meperidine HCl/PF 25 MG/ML VIAL SLOW IVP PRN (13:40)
[2022-02-18] MEDS ORDERED: Fentanyl 100 MCG/2 ML VIAL ONE ×2 (14:08→15:02)
[2022-02-18 17:16] VITALS: BMI 40.0
[2022-02-18] MEDS ORDERED: DULoxetine 60 MG CAP PO SCH (21:00)
[2022-02-18] MEDS ORDERED: DULoxetine 30 MG CAP PO SCH (21:00)
[2022-02-18] MEDS: Hydrocodone-Acetamin 15 ML UDCUP PO PRN (21:06)
[2022-02-19] MEDS: Ketorolac Tromethamine 30 MG/ML VIAL IVP SCH ×2 (00:19→05:44)
[2022-02-19] MEDS: Hydrocodone-Acetamin 15 ML UDCUP PO PRN ×2 (04:40→09:14)
[2022-02-19] MEDS: D5 1/2 NS w/20 mEq KCL 1,000 ML IV SCH (04:43)
[2022-02-19 06:10] LABS: #Eosinphils 0.1 thou/uL (0.0-0.7); #Lymphocytes 1.4 thou/uL (1.20-3.40); #Monocytes 0.8 thou/uL (0.11-0.59); #Neutrophils 7.2 thou/uL (1.40-6.50); %Basophils 0.4 % (0.0-1.0); %Eosinophils 0.7 % (0.0-10.0); %Lymphocytes 14.9 % (21.0-51.0); %Monocytes 8.3 % (0.0-10.0); %Neutrophils 75.7 % (42.0-75.0); Hemoglobin 11.8 g/dL (12.0-16.0); Mean Corpuscular HGB CONC 33.2 g/dL (32.0-36.0); Mean Corpuscular Hemoglobin 32.8 pg (27.0-31.0); Mean Corpuscular Volume 98.8 fL (78.0-98.0); Platelet Count 220 thou/uL (130-400); RBC Distribution Width 12.3 % (11.5-14.5); Red Blood Cell (RBC) Count 3.59 mill/uL (4.20-5.40); White Blood Cell (WBC) Count 9.6 thou/uL (4.8-10.8)
[2022-02-19 06:32] LABS: Anion Gap 8 mmol/L (10-20); BUN (Urea Nitrogen) 10 mg/dL (9.8-20.1); Calc. Creatinine Clearance 152 mL/min (70-130); Calcium 8.4 mg/dL (7.8-10.44); Carbon Dioxide 28 mmol/L (22-29); Chloride 104 mmol/L (98-107); Estimated GFR 103; Glucose 171 mg/dL (70-105); Potassium 4.2 mmol/L (3.5-5.1); Sodium 136 mmol/L (136-145)
[2022-02-19 07:38] VITALS: TEMP 98.7
[2022-02-19] MEDS ORDERED: Pantoprazole 40 MG VIAL IVP SCH (09:00)
[2022-02-19] MEDS ORDERED: Enoxaparin Sodium 40 MG/0.4 ML SYRINGE SC SCH (09:00)
[2022-02-19 12:13] VITALS: BP 95/58
== END 2022-02-19 13:30 | disposition home or self-care (01) | DRG 621 ==
LOC: SURG A 06:54 → SURG B 16:20
PROVIDERS: ADMIT Surgery; ATTEND Surgery
PROC: 0D164ZA Bypass Stomach to Jejunum, Percutaneous Endoscopic Approach (ICD-10-PCS; principal; 2022-02-18)
PROC: 8E0W4CZ Robotic Assisted Procedure of Trunk Region, Percutaneous Endoscopic Approach (ICD-10-PCS; 2022-02-18)
PROC: 0DP64CZ Removal of Extraluminal Device from Stomach, Percutaneous Endoscopic Approach (ICD-10-PCS; 2022-02-18)
PROC: 0DJ08ZZ Inspection of Upper Intestinal Tract, Via Natural or Artificial Opening Endoscopic (ICD-10-PCS; 2022-02-18)
DX: E66.01 Morbid (severe) obesity due to excess calories (principal); I10 Essential (primary) hypertension; Z68.41 Body mass index [BMI] 40.0-44.9, adult; Z88.2 Allergy status to sulfonamides; Z79.899 Other long term (current) drug therapy; Z90.710 Acquired absence of both cervix and uterus; Z96.643 Presence of artificial hip joint, bilateral; Z87.01 Personal history of pneumonia (recurrent)
CPT/HCPCS: 36416; 80048; 85025; 93005; 93010; C9113; J0694; J1100; J1200; J1650; J1885; J2250; J2370; J2405; J2704; J2765; J3010; J3480; J3490; S0028

== ENCOUNTER 2022-03-24 18:20 | Inpatient (IN) | payer OTHER ==
[2022-03-24 20:09] VITALS: BMI 38.7
[2022-03-24] MEDS ORDERED: Melatonin 3 MG TAB PO PRN (21:53)
[2022-03-24] MEDS ORDERED: hydrOXYzine 25 MG TAB PO SCH (22:00)
[2022-03-24] MEDS: Sodium Chloride 0.9% 1,000 ML IV SCH (22:07)
[2022-03-24 23:22] LABS: SARS-CoV-2 NAA Rapid Test DETECTED (NotDetected)
[2022-03-25] MEDS ORDERED: Acetaminophen 325 MG TAB PO PRN (00:32)
[2022-03-25] MEDS ORDERED: Pantoprazole 40 MG VIAL IVP SCH (01:15)
[2022-03-25] MEDS: Sodium Chloride 0.9% 1,000 ML IV SCH ×3 (04:30→22:37)
[2022-03-25 04:44] LABS: ALT (SGPT) 14 U/L (8-55); AST (SGOT) 20 U/L (5-34); Albumin 3.3 g/dL (3.5-5.0); Alkaline Phosphatase 53 U/L (40-110); Anion Gap 11 mmol/L (10-20); BUN (Urea Nitrogen) 7 mg/dL (9.8-20.1); Bilirubin, Total 0.6 mg/dL (0.2-1.2); Calc. Creatinine Clearance 183 mL/min (70-130); Calcium 8.1 mg/dL (7.8-10.44); Carbon Dioxide 25 mmol/L (22-29); Chloride 108 mmol/L (98-107); Estimated GFR 109; Globulin 2.1 g/dL (2.4-3.5); Glucose 88 mg/dL (70-105); Potassium 3.5 mmol/L (3.5-5.1); Protein, Total 5.4 g/dL (6.0-8.3); Sodium 140 mmol/L (136-145)
[2022-03-25 05:23] LABS: Band 4 % (5-11); Hemoglobin 12.2 g/dL (12.0-16.0); Lymphocytes 53 % (21-51); MDiff Complete? YES; Mean Corpuscular HGB CONC 32.7 g/dL (32.0-36.0); Mean Corpuscular Hemoglobin 32.2 pg (27.0-31.0); Mean Corpuscular Volume 98.3 fl (78.0-98.0); Mean Platelet Volume 10.3 fL (7.4-10.4); Monocytes 4 % (0-10); Neutrophil 38 % (42-75); Platelet Count 88 thou/uL (130-400); Platelet Morphology Comment Appears Decreased; RBC Distribution Width 12.6 % (11.5-14.5); RBC Morphology Normal; Reactive Lymphocytes 1 % (0-10); Red Blood Cell (RBC) Count 3.79 mill/uL (4.20-5.40); White Blood Cell (WBC) Count 3.6 thou/uL (4.8-10.8)
[2022-03-25 08:11] LABS: Platelet Count 85 thou/uL (130-400)
[2022-03-25] MEDS: Ascorbic Acid 500 mg Chewable Tablet PO SCH (10:07)
[2022-03-25] MEDS: Multivitamin W/ Minerals 1 TAB PO SCH (10:07)
[2022-03-25] MEDS: Stress 600 With Zinc 1 TAB PO SCH (10:07)
[2022-03-25] MEDS: Pantoprazole 40 MG VIAL IVP SCH ×2 (10:08→20:39)
[2022-03-25] MEDS: Calcium Carbonate 600 MG + Vit D TAB PO SCH (10:08)
[2022-03-25] MEDS: Morphine 4 MG/ML VIAL SLOW IVP PRN ×3 (10:08→20:53)
[2022-03-25] MEDS: Cholecalciferol 1,000 UNITS (25 MCG) TAB PO SCH (10:08)
[2022-03-25 12:28] LABS: Hemoglobin 11.9 g/dL (12.0-16.0); Platelet Count 84 thou/uL (130-400)
[2022-03-25 18:19] LABS: Hemoglobin 12.2 g/dL (12.0-16.0); Platelet Count 80 thou/uL (130-400)
[2022-03-25] MEDS ORDERED: DULoxetine 30 MG CAP PO SCH (21:00)
[2022-03-25] MEDS ORDERED: Cepastat Lozenges 1 LOZ PO PRN (22:12)
[2022-03-25] MEDS: Guaifenesin DM 100-10/5 ML UDCUP PO PRN (22:37)
[2022-03-26 00:11] LABS: Hemoglobin 12.7 g/dL (12.0-16.0); Platelet Count 84 thou/uL (130-400)
[2022-03-26] MEDS: Sodium Chloride 0.9% 1,000 ML IV SCH ×2 (04:58→13:18)
[2022-03-26] MEDS: Guaifenesin DM 100-10/5 ML UDCUP PO PRN (04:59)
[2022-03-26] MEDS ORDERED: Ondansetron ODT 4 MG TAB PO PRN (05:17)
[2022-03-26] MEDS ORDERED: Ondansetron PF 4 MG/2 ML Vial IVP PRN (05:17)
[2022-03-26] MEDS: Morphine 4 MG/ML VIAL SLOW IVP PRN (05:17)
[2022-03-26 06:51] LABS: ALT (SGPT) 14 U/L (8-55); AST (SGOT) 31 U/L (5-34); Albumin 3.1 g/dL (3.5-5.0); Alkaline Phosphatase 49 U/L (40-110); Anion Gap 12 mmol/L (10-20); BUN (Urea Nitrogen) 4 mg/dL (9.8-20.1); Bilirubin, Total 0.6 mg/dL (0.2-1.2); Calc. Creatinine Clearance 195 mL/min (70-130); Calcium 8.2 mg/dL (7.8-10.44); Carbon Dioxide 22 mmol/L (22-29); Chloride 106 mmol/L (98-107); Estimated GFR 111; Globulin 2.8 g/dL (2.4-3.5); Glucose 106 mg/dL (70-105); Protein, Total 5.9 g/dL (6.0-8.3); Sodium 136 mmol/L (136-145)
[2022-03-26 07:20] LABS: Hemoglobin 12.1 g/dL (12.0-16.0); Mean Corpuscular Hemoglobin 31.1 pg (27.0-31.0); Mean Corpuscular Volume 97.3 fl (78.0-98.0); Mean Platelet Volume 10.5 fL (7.4-10.4); Platelet Count 84 thou/uL (130-400); RBC Distribution Width 12.6 % (11.5-14.5); White Blood Cell (WBC) Count 3.1 thou/uL (4.8-10.8)
[2022-03-26 08:23] LABS: Band 2 % (5-11); Eosinophils 2 % (0-10); Lymphocytes 52 % (21-51); MDiff Complete? YES; Monocytes 5 % (0-10); Neutrophil 38 % (42-75); Platelet Morphology Comment Appears Decreased; RBC Morphology Normal
[2022-03-26] MEDS: Multivitamin W/ Minerals 1 TAB PO SCH (08:31)
[2022-03-26] MEDS: Cholecalciferol 1,000 UNITS (25 MCG) TAB PO SCH (08:31)
[2022-03-26] MEDS: Ascorbic Acid 500 mg Chewable Tablet PO SCH (08:31)
[2022-03-26] MEDS: Calcium Carbonate 600 MG + Vit D TAB PO SCH (08:31)
[2022-03-26] MEDS: Stress 600 With Zinc 1 TAB PO SCH (08:32)
[2022-03-26] MEDS: Pantoprazole 40 MG VIAL IVP SCH (08:32)
[2022-03-26] MEDS ORDERED: Benzonatate 100 MG CAP PO SCH (09:00)
[2022-03-26] MEDS ORDERED: PROPOFOL 200 MG/20 ML VIAL ONE (10:54)
[2022-03-26] MEDS ORDERED: Promethazine HCl 25 MG/ML VIAL IM PRN (11:27)
[2022-03-26] MEDS ORDERED: Promethazine HCl 25 MG/ML VIAL IVPB PRN (11:27)
[2022-03-26] MEDS ORDERED: Ondansetron HCl/PF 4 MG/2 ML Vial IVP PRN (11:27)
[2022-03-26 12:28] VITALS: BP 113/75; TEMP 97.4
[2022-03-26] MEDS ORDERED: Sucralfate 1 GM/10 ML UDCUP PO SCH (15:00)
== END 2022-03-26 14:08 | disposition home or self-care (01) | DRG 377 ==
LOC: INTOOBSV 18:20 → 2NO 18:20 → OBSVTOIN 03-25 12:22 → T4-B 03-25 15:35
PROVIDERS: ADMIT Student in an Organized Health Care Education/Training Program; ATTEND Student in an Organized Health Care Education/Training Program
PROC: 0DB58ZX Excision of Esophagus, Via Natural or Artificial Opening Endoscopic, Diagnostic (ICD-10-PCS; principal; 2022-03-26)
DX: K92.2 Gastrointestinal hemorrhage, unspecified (principal); J12.82 Pneumonia due to coronavirus disease 2019; U07.1 COVID-19; E66.01 Morbid (severe) obesity due to excess calories; F32.A Depression, unspecified; Z96.643 Presence of artificial hip joint, bilateral; G47.00 Insomnia, unspecified; K29.70 Gastritis, unspecified, without bleeding; D69.6 Thrombocytopenia, unspecified; Z90.710 Acquired absence of both cervix and uterus; Z88.2 Allergy status to sulfonamides; Z79.899 Other long term (current) drug therapy; Z98.84 Bariatric surgery status; Z68.38 Body mass index [BMI] 38.0-38.9, adult
CPT/HCPCS: 36415; 80053; 85025; 88305; 96374; 96376; C9113; G0378; J2270; J2405; J7050; U0002